=== PATIENT | female | born 1950 | race American Indian/Alaskan Native ===

== ENCOUNTER 2017-04-30 16:38 | Emergency (ER) | payer MEDICAID, OTHER ==
--- NOTE | 2017-04-30 16:58 | EDM.PDOC ---
ED HPI GENERAL MEDICAL PROBLEM - General Stated Complaint: SORE IN PRIVATE AREA, [id number] Time Seen by Provider: 04/30/17 16:40 Source of Information: Reports: Patient History Limitations: Reports: No Limitations - History of Present Illness INITIAL COMMENTS - FREE TEXT/NARRATIVE: This 66 yo female patient reports to the ED with her with left groin pain. The patient reports she started to have pain 4-5 days ago with worsening of her symptoms. The patient reports she was seen for her regular check-up yesterday at the [facility], told her provider about her symptoms, but was not treated. The patient reports she has been feeling pretty well other than the above complaint. Onset Date: 04/26/17 Duration: Constant, Getting Worse Location: Reports: Other (left groin) Quality: Reports: Ache, Burning Severity: Moderate Improves with: Reports: None Worsens with: Reports: None Associated Symptoms: Reports: No Other Symptoms Left Groin Pain Score (Numeric/FACES): 6 - Related Data Allergies Allergy/AdvReac Type Severity Reaction Status Date / Time ramipril [From Altace] Allergy Difficulty Verified 05/02/16 16:53 Swallowing Home Meds: Home Meds Aspirin [Tawanna Chewable] 81 mg PO DAILY 02/21/14 [History] Losartan [Cozaar] 50 mg PO DAILY 02/21/14 [History] glipiZIDE/Metformin HCl [Glipizide-Metformin 5-500 mg] 1 each PO BID 02/21/14 [ History] Insulin Detemir [Levemir] 35 units SQ BEDTIME 10/15/14 [History] Clotrimazole [Clotrimazole 1%] 1 applic TOP BID 03/07/16 [History] Trospium Chloride 1 tab PO BID 03/07/16 [History] atorvaSTATin Calcium [Atorvastatin Calcium] 1 tab PO DAILY 03/07/16 [History] Past Medical History HEENT History: Reports: Impaired Vision Cardiovascular History: Reports: High Cholesterol, Hypertension Respiratory History: Reports: Asthma Genitourinary History: Reports: Other (See Below) Other Genitourinary History: stress incontinence Endocrine/Metabolic History: Reports: Diabetes, Type II - Past Surgical History HEENT Surgical History: Reports: Cataract Surgery Female Surgical History: Reports: Other (See Below) Social & Family History - Family History Family Medical History: Noncontributory : Reports: Dialysis Endocrine/Metabolic: Reports: Diabetes, type II Oncologic: Reports: Breast - Tobacco Use Smoking Status *Q: Current Every Day Smoker Years of Tobacco use: 46 Packs/Tins Daily: 0.2 Second Hand Smoke Exposure: No - Caffeine Use Caffeine Use: Reports: Coffee - Alcohol Use Days Per Week of Alcohol Use: 0 - Recreational Drug Use Recreational Drug Use: No - Living Situation & Occupation Living situation: Reports: , with Family Occupation: Retired ED ROS GENERAL - Review of Systems Review Of Systems: ROS reveals no pertinent complaints other than HPI. ED EXAM, GENERAL - Physical Exam Exam: See Below Exam Limited By: No Limitations General Appearance: Alert, WD/WN, Moderate Distress Eye Exam: Bilateral Eye: EOMI, Normal Inspection, PERRL Ears: Normal External Exam, Normal Canal, Hearing Grossly Normal, Normal TMs Nose: Normal Inspection, Normal Mucosa, No Blood Throat/Mouth: Normal Inspection, Normal Lips, Normal Teeth, Normal Gums, Normal Oropharynx, Normal Voice, No Airway Compromise Head: Atraumatic, Normocephalic Neck: Normal Inspection, Supple, Non-Tender, Full Range of Motion Respiratory/Chest: No Respiratory Distress, Lungs Clear, Normal Breath Sounds, No Accessory Muscle Use, Chest Non-Tender Cardiovascular: Normal Peripheral Pulses, Regular Rate, Rhythm, No Edema, No Gallop, No JVD, No Murmur, No Rub GI/Abdominal: Normal Bowel Sounds, Soft, Non-Tender, No Organomegaly, No Distention, No Abnormal Bruit, No Mass (Female) Exam: Deferred Rectal (Female) Exam: Deferred Back Exam: Normal Inspection, Full Range of Motion, NT Extremities: Normal Inspection, Normal Range of Motion, Non-Tender, Normal Capillary Refill, No Pedal Edema Neurological: Alert, Oriented, CN II-XII Intact, Normal Cognition, Normal Gait, Normal Reflexes, No Motor/Sensory Deficits Psychiatric: Normal Affect, Normal Mood Skin Exam: Erythema (left groin with whitish discharge) Course - Vital Signs Last Recorded V/S: Last Vital Signs Temp 36.6 C 04/30/17 16:57 Pulse 89 04/30/17 16:57 Resp 16 04/30/17 16:57 BP 156/60 H 04/30/17 16:57 Pulse Ox 95 04/30/17 16:57 - Orders/Labs/Meds Labs: Laboratory Tests 04/30/17 04/30/17 04/30/17 Range/Units 17:00 17:00 17:00 WBC 17.7 H (5.0-10.0) 10^3/uL RBC 5.10 (4.2-5.4) 10^6/uL Hgb 14.6 (12.0-16.0) g/dL Hct 44.3 (37.0-47.0) % MCV 86.9 (80-100) fL MCH 28.6 (27.0-34.0) pg MCHC 33.0 (33.0-35.0) g/dL Plt Count 389 (150-450) 10^3/uL Neut % (Auto) 67.9 (42.2-75.2) % Lymph % (Auto) 26.5 (20.5-50.1) % [place] % (Auto) 4.6 (2-8) % Eos % (Auto) 0.7 L (1.0-3.0) % Baso % (Auto) 0.3 (0.0-1.0) % Sodium 138 (135-145) mmol/L Potassium 4.2 (3.6-5.0) mmol/L Chloride 99 L (101-111) mmol/L Carbon Dioxide 27.0 (21.0-31.0) mmol/L Anion Gap 16.2 BUN 8 (7-18) mg/dL Creatinine 0.6 (0.6-1.3) mg/dL Est Cr Clr Drug Dosing 73.29 mL/min Estimated GFR (MDRD) > 60 BUN/Creatinine Ratio 13.33 Glucose 234 H (74-105) mg/dL Calcium 9.5 (8.4-10.2) mg/dl Total Bilirubin 0.5 (0.2-1.0) mg/dL AST 16 (10-42) IU/L ALT 17 (10-60) IU/L Alkaline Phosphatase 98 (42-121) IU/L Total Protein 7.8 (6.7-8.2) g/dl Albumin 4.0 (3.2-5.5) g/dl Globulin 3.8 Albumin/Globulin Ratio 1.05 Urine Color Yellow (YELLOW) Urine Appearance Clear (CLEAR) Urine pH 6.0 (5.0-9.0) Ur Specific [place] 1.015 (1.005-1.030) Urine Protein Negative (NEGATIVE) Urine Glucose (UA) 100 H (NEGATIVE) Urine Ketones Negative (NEGATIVE) Urine Occult Blood Negative (NEGATIVE) Urine Nitrite Negative (NEGATIVE) Urine Bilirubin Negative (NEGATIVE) Urine Urobilinogen 0.2 (0.2-1.0) mg/dL Ur Leukocyte Esterase Negative (NEGATIVE) Urine RBC 0-5 /HPF Urine WBC 0-5 (0-5/HPF) /HPF Ur Epithelial Cells Moderate H /HPF Urine Bacteria Occasional (0-FEW/HPF) /HPF Departure - Departure Time of Disposition: 17:33 Disposition: Home, Self-Care 01 Condition: Fair Clinical Impression: Cutaneous candidiasis Cellulitis Qualifiers: Site of cellulitis: extremity Site of cellulitis of extremity: lower extremity Laterality: left Qualified Code(s): L03.116 - Cellulitis of left lower limb - Discharge Information Instructions: Cellulitis, Adult, [id number] Care Plan Goals: The patient was advised of the examination and lab results during the visit. The patient was given a script for Nystatin Ointment ([id number] units/gram) #15 gram tube to apply to the affected area 3 times per day for 10 days and Bactrim DS to take 1 by mouth 2 times per day for 10 days. If the patient has any additional symptoms or concerns, the patient should either follow-up with her primary care facility or return to the emergency department.
[2017-04-30 17:00] VITALS: BP 156/60
[2017-04-30 17:25] LABS: CHLORIDE,CL 99 mmol/L (101-111); SODIUM,NA 138 mmol/L (135-145)
== END 2017-04-30 17:56 | disposition home or self-care (01) ==
LOC: DL.ED 16:38
DX: L03.116 Cellulitis of left lower limb (principal); B37.2 Candidiasis of skin and nail; Z79.82 Long term (current) use of aspirin; E78.00 Pure hypercholesterolemia, unspecified; I10 Essential (primary) hypertension; E11.9 Type 2 diabetes mellitus without complications; F17.210 Nicotine dependence, cigarettes, uncomplicated; Z88.8 Allergy status to other drugs, medicaments and biological substances
CPT/HCPCS: 36415; 80053; 81001; 85025; 99283

== ENCOUNTER 2017-07-12 10:15 | Emergency (ER) | payer MEDICARE, MEDICAID ==
[2017-07-12 10:26] VITALS: BP 160/64
[2017-07-12] MEDS ORDERED: Albuterol/Ipratropium 3.0-0.5 MG/3 ML Neb Soln NEB ONE (10:42)
--- NOTE | 2017-07-12 10:57 | CR ---
Clinical history: 67-year-old female with cough and dyspnea. Interpretation: Chronic mild shaggy accentuation of the bronchovascular markings with subtle peribron chial "cuffing" and generalized air trapping that was evident on 22 February 2004 exam i.e. unchanged. Multilevel disc disease and hypertrophic arthritic changes of the spine. Calcification arch of the ao rta. Normal cardiac silhouette without cephalization of flow, new signs of alveolar edema or dependent eff usion. No new lung mass lesion, hilar lymphadenopathy or focal lobar pneumonia. No atelectasis/collapse. No pneumothorax. CONCLUSION: Reactive airway disease. No new signs of heart failure or lobar pneumonia when compared t o February 2014 film.
[2017-07-12 11:20] LABS: CHLORIDE,CL 101 mmol/L (101-111); SODIUM,NA 138 mmol/L (135-145)
--- NOTE | 2017-07-12 11:36 | EDM.PDOC ---
Scribed by Destiny Aldrich 07/12/17 1136 for Jairon Velasquez MD ED HPI GENERAL MEDICAL PROBLEM - General Chief Complaint: Chest Pain Stated Complaint: LEFT SIDE OF BREAST, PAIN Time Seen by Provider: 07/12/17 10:35 Source of Information: Reports: Patient, RN, RN Notes Reviewed History Limitations: Reports: No Limitations - History of Present Illness INITIAL COMMENTS - FREE TEXT/NARRATIVE: Patient complains of sick over a week with cough, chills, headache and left chest wall pains. Was seen in clinic and treated with Levaquin x5 days and has one day left on Medrol Dose Pack, but the medicine didn't help. At the clinic she states no blood tests or x-rays were taken. Admits to cough with white sputum that has some blood tinge today. Denies shortness of breath, edema or fever. Location: Reports: Head, Chest Quality: Reports: Ache Severity: Moderate Improves with: Reports: None Worsens with: Reports: None Associated Symptoms: Reports: No Other Symptoms Left Chest Pain Score (Numeric/FACES): 10 - Related Data Allergies Allergy/AdvReac Type Severity Reaction Status Date / Time ramipril [From Altace] Allergy Difficulty Verified 05/02/16 16:53 Swallowing Home Meds: Home Meds Aspirin [Tawanna Chewable] 81 mg PO DAILY 02/21/14 [History] Losartan [Cozaar] 50 mg PO DAILY 02/21/14 [History] glipiZIDE/Metformin HCl [Glipizide-Metformin 5-500 mg] 1 each PO BID 02/21/14 [ History] Insulin Detemir [Levemir] 44 units SQ BEDTIME 10/15/14 [History] Clotrimazole [Clotrimazole 1%] 1 applic TOP BID PRN 03/07/16 [History] atorvaSTATin Calcium [Atorvastatin Calcium] 1 tab PO BEDTIME 03/07/16 [History] Albuterol [IJD: Ventolin HFA] 2 puff INH ASDIRECTED PRN 07/12/17 [History] Insulin Aspart [Novolog Flexpen] 12 units SQ ASDIRECTED 07/12/17 [History] Past Medical History HEENT History: Reports: Impaired Vision Cardiovascular History: Reports: High Cholesterol, Hypertension Respiratory History: Reports: Asthma Genitourinary History: Reports: Other (See Below) Other Genitourinary History: stress incontinence Endocrine/Metabolic History: Reports: Diabetes, Type II - Past Surgical History HEENT Surgical History: Reports: Cataract Surgery Female Surgical History: Reports: Other (See Below) Social & Family History - Family History Family Medical History: Noncontributory : Reports: Dialysis Endocrine/Metabolic: Reports: Diabetes, type II Oncologic: Reports: Breast - Tobacco Use Smoking Status *Q: Current Every Day Smoker Years of Tobacco use: 46 Packs/Tins Daily: 0.2 Second Hand Smoke Exposure: No - Caffeine Use Caffeine Use: Reports: Coffee - Alcohol Use Days Per Week of Alcohol Use: 0 - Recreational Drug Use Recreational Drug Use: No - Living Situation & Occupation Living situation: Reports: , with Family Occupation: Retired ED ROS GENERAL - Review of Systems Review Of Systems: ROS reveals no pertinent complaints other than HPI. ED EXAM, GENERAL - Physical Exam Exam: See Below Exam Limited By: No Limitations General Appearance: Obese, Other (chronically ill appearing. ) Eye Exam: Bilateral Eye: Normal Inspection Ears: Normal External Exam, Normal Canal, Hearing Grossly Normal, Normal TMs Nose: Other (inflamed nasal mucosa. No visible drainage. ) Throat/Mouth: Normal Inspection, Normal Lips, Normal Teeth, Normal Gums, Normal Oropharynx, Normal Voice, No Airway Compromise Head: Atraumatic, Normocephalic Neck: Full Range of Motion, Other (no nuchal rigidity.) Respiratory/Chest: Wheezing (scattered bilaterally. ), Other (tender to palpation at left lateral mid lower chest wall.) Cardiovascular: Normal Peripheral Pulses, Regular Rate, Rhythm, No Edema, No Gallop, No JVD, No Murmur, No Rub GI/Abdominal: Other (benign obese abdomen) (Female) Exam: Deferred Rectal (Female) Exam: Deferred Back Exam: Normal Inspection, Full Range of Motion, NT Extremities: Normal Inspection, Normal Range of Motion, Non-Tender, Normal Capillary Refill, No Pedal Edema Neurological: Alert, Oriented, CN II-XII Intact, Normal Cognition, Normal Gait, Normal Reflexes, No Motor/Sensory Deficits Psychiatric: Normal Affect, Normal Mood Skin Exam: Warm, Dry, Intact, Normal Color, No Rash Course - Vital Signs Last Recorded V/S: Last Vital Signs Temp 36.7 C 07/12/17 10:24 Pulse 74 07/12/17 11:03 Resp 22 H 07/12/17 10:24 BP 160/64 H 07/12/17 10:24 Pulse Ox 96 07/12/17 10:24 - Orders/Labs/Meds Orders: Active Orders 24 hr Category Date Time Status RT Aerosol Therapy [RC] ASDIRECTED Care 07/12/17 10:42 Active CULTURE URINE [RM] Stat Lab 07/12/17 10:56 Received Labs: Laboratory Tests 07/12/17 07/12/17 07/12/17 Range/Units 10:55 10:55 10:56 WBC 14.9 H (5.0-10.0) 10^3/uL RBC 5.18 (4.2-5.4) 10^6/uL Hgb 14.8 (12.0-16.0) g/dL Hct 44.9 (37.0-47.0) % MCV 86.7 (80-100) fL MCH 28.6 (27.0-34.0) pg MCHC 33.0 (33.0-35.0) g/dL Plt Count 395 (150-450) 10^3/uL Neut % (Auto) 63.9 (42.2-75.2) % Lymph % (Auto) 30.3 (20.5-50.1) % [place] % (Auto) 5.2 (2-8) % Eos % (Auto) 0.3 L (1.0-3.0) % Baso % (Auto) 0.3 (0.0-1.0) % Sodium 138 (135-145) mmol/L Potassium 4.1 (3.6-5.0) mmol/L Chloride 101 (101-111) mmol/L Carbon Dioxide 27.0 (21.0-31.0) mmol/L Anion Gap 14.1 BUN 13 (7-18) mg/dL Creatinine 0.6 (0.6-1.3) mg/dL Est Cr Clr Drug Dosing 93.04 mL/min Estimated GFR (MDRD) > 60 BUN/Creatinine Ratio 21.66 Glucose 105 (74-105) mg/dL Calcium 9.4 (8.4-10.2) mg/dl Total Bilirubin 0.2 (0.2-1.0) mg/dL AST 15 (10-42) IU/L ALT 17 (10-60) IU/L Alkaline Phosphatase 96 (42-121) IU/L Total Protein 7.5 (6.7-8.2) g/dl Albumin 3.7 (3.2-5.5) g/dl Globulin 3.8 Albumin/Globulin Ratio 0.97 Urine Color Yellow (YELLOW) Urine Appearance Slightly cloudy (CLEAR) Urine pH 6.5 (5.0-9.0) Ur Specific [place] 1.015 (1.005-1.030) Urine Protein 30 H (NEGATIVE) Urine Glucose (UA) Negative (NEGATIVE) Urine Ketones Negative (NEGATIVE) Urine Occult Blood Negative (NEGATIVE) Urine Nitrite Negative (NEGATIVE) Urine Bilirubin Negative (NEGATIVE) Urine Urobilinogen 0.2 (0.2-1.0) mg/dL Ur Leukocyte Esterase Trace H (NEGATIVE) Urine RBC 0-5 /HPF Urine WBC 5-10 H (0-5/HPF) /HPF Ur Epithelial Cells Few /HPF Amorphous Sediment Few (0/HPF) /HPF Urine Bacteria Moderate H (0-FEW/HPF) /HPF Meds: Medications Discontinued Medications Generic Name Dose Route Start Last Admin Trade Name Freq PRN Reason Stop Dose Admin Albuterol/Ipratropium 3 ml 07/12/17 10:42 07/12/17 11:02 Duoneb 3.0-0.5 Mg/3 Ml NEB 07/12/17 10:43 3 ml ONETIME ONE Administration - Radiology Interpretation Free Text/Narrative:: Chest x-ray: Reactive airway disease. See rad report. Departure - Departure Time of Disposition: 11:26 Disposition: Home, Self-Care 01 Condition: Fair Clinical Impression: Pleurisy without effusion UTI (urinary tract infection) Qualifiers: Urinary tract infection type: site unspecified Hematuria presence: without hematuria Qualified Code(s): N39.0 - Urinary tract infection, site not specified - Discharge Information Instructions: Urinary Tract Infection, Adult, [id number], Pleurisy, Easy-to- Read Referrals: Lorne Moreira MD [Primary Care Provider] - Forms: ED Department Discharge Additional Instructions: RX: Tylenol#3. RX: Macrobid 100mg. Use your Albuterol inhaler every 4-6 hours while awake until improved. Follow up in clinicin3-4 days for recheck. - My Orders Last 24 Hours: My Active Orders 07/12/17 10:42 RT Aerosol Therapy [RC] ASDIRECTED 07/12/17 10:56 CULTURE URINE [RM] Stat - Assessment/Plan Last 24 Hours: My Active Orders 07/12/17 10:42 RT Aerosol Therapy [RC] ASDIRECTED 07/12/17 10:56 CULTURE URINE [RM] Stat I have read and agree with the documentation that has been completed regarding this visit. By signing this record, I attest that the documentation was completed in my physical presence and is an accurate record of the encounter.
== END 2017-07-12 11:40 | disposition home or self-care (01) ==
LOC: DL.ED 10:15
DX: R09.1 Pleurisy (principal); N39.0 Urinary tract infection, site not specified; I10 Essential (primary) hypertension; E11.9 Type 2 diabetes mellitus without complications; F17.210 Nicotine dependence, cigarettes, uncomplicated; Z79.82 Long term (current) use of aspirin; Z79.4 Long term (current) use of insulin; Z79.899 Other long term (current) drug therapy
CPT/HCPCS: 36415; 71020; 80053; 81001; 85025; 87086; 94640; 99284; 99285

== ENCOUNTER 2018-05-02 13:49 | Emergency (ER) | payer MEDICARE, MEDICAID ==
[2018-05-02 14:08] VITALS: BP 157/56
[2018-05-02] MEDS ORDERED: Sodium Chloride 0.9% 10 ML Syringe FLUSH PRN (15:22)
[2018-05-02 16:05] LABS: ANION GAP 14.2; CHLORIDE,CL 101 mmol/L (101-111); SODIUM,NA 135 mmol/L (135-145)
[2018-05-02] MEDS ORDERED: Iopamidol 612 MG/ML 100 ML Bottle IVPUSH ONE (16:12)
[2018-05-02] MEDS ORDERED: Clindamycin HCl 150 MG Cap PO ONE (18:01)
--- NOTE | 2018-05-02 18:53 | EDM.PDOC ---
Scribed by Destiny Aldrich 05/02/18 [id number] for Shayna Dee NP ED HPI GENERAL MEDICAL PROBLEM - General Chief Complaint: Genitourinary Problem Stated Complaint: PERSONAL [id number] Time Seen by Provider: 05/02/18 14:57 Source of Information: Reports: Patient, RN, RN Notes Reviewed History Limitations: Reports: No Limitations - History of Present Illness INITIAL COMMENTS - FREE TEXT/NARRATIVE: Patient presents to ER with complaint of abdominal pain. States she has had a hernia-but it has recently gotten larger and painful. She has had frequency, urgency, burning with urination and nausea. No fever, chills, vomiting or diarrhea. Last BM today which was normal for her. Onset: Gradual Duration: Getting Worse Location: Reports: Abdomen Quality: Reports: Ache Severity: Moderate Improves with: Reports: None Worsens with: Reports: None Associated Symptoms: Reports: No Other Symptoms - Related Data Allergies Allergy/AdvReac Type Severity Reaction Status Date / Time ramipril [From Altace] Allergy Difficulty Verified 05/02/16 16:53 Swallowing Home Meds: Home Meds Aspirin [Tawanna Chewable] 81 mg PO DAILY 02/21/14 [History] Losartan [Cozaar] 50 mg PO DAILY 02/21/14 [History] glipiZIDE/Metformin HCl [Glipizide-Metformin 5-500 mg] 1 each PO BID 02/21/14 [ History] Insulin Detemir [Levemir] 45 units SQ BEDTIME 10/15/14 [History] Clotrimazole [Clotrimazole 1%] 1 applic TOP BID PRN 03/07/16 [History] atorvaSTATin Calcium [Atorvastatin Calcium] 1 tab PO BEDTIME 03/07/16 [History] Albuterol [IJD: Ventolin HFA] 2 puff INH ASDIRECTED PRN 07/12/17 [History] Insulin Aspart [Novolog Flexpen] 15 units SQ TID 07/12/17 [History] Past Medical History HEENT History: Reports: Impaired Vision Cardiovascular History: Reports: High Cholesterol, Hypertension Respiratory History: Reports: Asthma Genitourinary History: Reports: Other (See Below) Other Genitourinary History: stress incontinence Endocrine/Metabolic History: Reports: Diabetes, Type II - Past Surgical History HEENT Surgical History: Reports: Cataract Surgery GI Surgical History: Reports: Cholecystectomy, Colonoscopy Female Surgical History: Reports: Other (See Below) Musculoskeletal Surgical History: Reports: Shoulder Surgery Social & Family History - Family History Family Medical History: Noncontributory : Reports: Dialysis Endocrine/Metabolic: Reports: Diabetes, type II Oncologic: Reports: Breast - Tobacco Use Smoking Status *Q: Current Every Day Smoker Years of Tobacco use: 40 Packs/Tins Daily: 0.1 - Caffeine Use Caffeine Use: Reports: Coffee, Soda, Tea - Recreational Drug Use Recreational Drug Use: No - Living Situation & Occupation Living situation: Reports: , with Family Occupation: Retired ED ROS GENERAL - Review of Systems Review Of Systems: ROS reveals no pertinent complaints other than HPI. ED EXAM, GI/ABD - Physical Exam Exam: See Below Exam Limited By: No Limitations General Appearance: Alert, WD/WN, No Apparent Distress Eyes: Bilateral: Normal Appearance Ears: Normal External Exam, Normal Canal, Hearing Grossly Normal, Normal TMs Nose: Normal Inspection, Normal Mucosa, No Blood Throat/Mouth: Normal Inspection, Normal Lips, Normal Teeth, Normal Gums, Normal Oropharynx, Normal Voice, No Airway Compromise Head: Atraumatic, Normocephalic Neck: Normal Inspection, Supple, Non-Tender, Full Range of Motion Respiratory/Chest: Rhonchi (bilateral throughout) Cardiovascular: Normal Peripheral Pulses, Regular Rate, Rhythm, No Edema, No Gallop, No JVD, No Murmur, No Rub GI/Abdominal Exam: Other (periumbilical hernia) (Female) Exam: Deferred Rectal (Female) Exam: Deferred Back Exam: Normal Inspection, Full Range of Motion, NT Extremities: Other (tender right gunn, normal exam) Neurological: Alert, Oriented, CN II-XII Intact, Normal Cognition, Normal Gait, Normal Reflexes, No Motor/Sensory Deficits Psychiatric: Normal Affect, Normal Mood Skin Exam: Warm, Dry, Intact, Normal Color, No Rash Lymphatic: No Adenopathy Course - Vital Signs Last Recorded V/S: Last Vital Signs Temp 98 F 05/02/18 14:07 Pulse 78 05/02/18 14:07 Resp 16 05/02/18 14:07 BP 157/56 H 05/02/18 14:07 Pulse Ox 94 L 05/02/18 14:07 - Orders/Labs/Meds Orders: Active Orders 24 hr Category Date Time Status Peripheral IV Care [RC] . DIRECTED Care 05/02/18 15:22 Active Sodium Chloride 0.9% [Saline Flush] Med 05/02/18 15:22 Active 10 ml FLUSH ASDIRECTED PRN Peripheral IV Insertion Adult [OM.PC] Stat Oth 05/02/18 15:22 Ordered Medication Orders Sodium Chloride (Saline Flush) 10 ml FLUSH ASDIRECTED PRN PRN Reason: Keep Vein Open Last Admin: 05/02/18 15:44 Dose: 10 ml Labs: Laboratory Tests 05/02/18 05/02/18 05/02/18 Range/Units 14:44 15:39 15:39 WBC 14.5 H (5.0-10.0) 10^3/uL RBC 4.91 (4.2-5.4) 10^6/uL Hgb 13.6 (12.0-16.0) g/dL Hct 42.7 (37.0-47.0) % MCV 87.0 (80-100) fL MCH 27.7 (27.0-34.0) pg MCHC 31.9 L (33.0-35.0) g/dL Plt Count 385 (150-450) 10^3/uL Neut % (Auto) 59.6 (42.2-75.2) % Lymph % (Auto) 34.4 (20.5-50.1) % [place] % (Auto) 4.6 (2-8) % Eos % (Auto) 1.0 (1.0-3.0) % Baso % (Auto) 0.4 (0.0-1.0) % Sodium 135 (135-145) mmol/L Potassium 4.2 (3.6-5.0) mmol/L Chloride 101 (101-111) mmol/L Carbon Dioxide 24.0 (21.0-31.0) mmol/L Anion Gap 14.2 BUN 12 (7-18) mg/dL Creatinine 0.5 L (0.6-1.3) mg/dL Est Cr Clr Drug Dosing 87.54 mL/min Estimated GFR (MDRD) > 60 BUN/Creatinine Ratio 24.00 Glucose 177 H (74-105) mg/dL Calcium 9.3 (8.4-10.2) mg/dl Total Bilirubin 0.2 (0.2-1.0) mg/dL AST 16 (10-42) IU/L ALT 19 (10-60) IU/L Alkaline Phosphatase 107 (42-121) IU/L Total Protein 7.5 (6.7-8.2) g/dl Albumin 3.8 (3.2-5.5) g/dl Globulin 3.7 Albumin/Globulin Ratio 1.03 Urine Color Yellow (YELLOW) Urine Appearance Clear (CLEAR) Urine pH 6.0 (5.0-9.0) Ur Specific [place] 1.010 (1.005-1.030) Urine Protein Negative (NEGATIVE) Urine Glucose (UA) Negative (NEGATIVE) Urine Ketones Negative (NEGATIVE) Urine Occult Blood Negative (NEGATIVE) Urine Nitrite Negative (NEGATIVE) Urine Bilirubin Negative (NEGATIVE) Urine Urobilinogen 0.2 (0.2-1.0) mg/dL Ur Leukocyte Esterase Negative (NEGATIVE) Urine RBC 0-5 /HPF Urine WBC 0-5 (0-5/HPF) /HPF Ur Epithelial Cells Few /HPF Amorphous Sediment Rare (0/HPF) /HPF Urine Bacteria Rare (0-FEW/HPF) /HPF Meds: Medications Generic Name Dose Route Start Last Admin Trade Name Freq PRN Reason Stop Dose Admin Sodium Chloride 10 ml 05/02/18 15:22 05/02/18 15:44 Saline Flush FLUSH 10 ml ASDIRECTED PRN Administration Keep Vein Open Discontinued Medications Generic Name Dose Route Start Last Admin Trade Name Freq PRN Reason Stop Dose Admin Clindamycin HCl 300 mg 05/02/18 18:01 Cleocin PO 05/02/18 18:02 ONETIME ONE Iopamidol 100 ml 05/02/18 16:12 05/02/18 16:32 Isovue-300 (61%) IVPUSH 05/02/18 16:13 100 ml ONETIME ONE Administration - Radiology Interpretation Free Text/Narrative:: Abdomen/Pelvis CT: IMPRESSION: 1. There is a diffuse decrease in hepatic parenchymal density, consistent with fatty infiltration. 2. There has been a cholecystectomy. 3. Calcified uterine fibroids. Thank you for allowing us to participate in the care of your patient. 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 Recommended pelvic exam. - My Orders Last 24 Hours: My Active Orders 05/02/18 15:22 Peripheral IV Care [RC] . DIRECTED Sodium Chloride 0.9% [Saline Flush] 10 ml FLUSH ASDIRECTED PRN Peripheral IV Insertion Adult [OM.PC] Stat - Assessment/Plan Last 24 Hours: My Active Orders 05/02/18 15:22 Peripheral IV Care [RC] . DIRECTED Sodium Chloride 0.9% [Saline Flush] 10 ml FLUSH ASDIRECTED PRN Peripheral IV Insertion Adult [OM.PC] Stat I have read and agree with the documentation that has been completed regarding this visit. By signing this record, I attest that the documentation was completed in my physical presence and is an accurate record of the encounter.
== END 2018-05-02 18:11 | disposition home or self-care (01) ==
LOC: DL.ED 13:49
DX: R10.33 Periumbilical pain (principal); E11.69 Type 2 diabetes mellitus with other specified complication; F17.210 Nicotine dependence, cigarettes, uncomplicated; Z88.8 Allergy status to other drugs, medicaments and biological substances; Z79.82 Long term (current) use of aspirin; Z79.899 Other long term (current) drug therapy
CPT/HCPCS: 36415; 74177; 80053; 81001; 85025; 99284; A9270; J7050; Q9967; 99283

== ENCOUNTER 2018-10-27 15:08 | Emergency (ER) | payer MEDICARE, MEDICAID ==
[2018-10-27 15:22] VITALS: BP 132/64
[2018-10-27] MEDS ORDERED: Albuterol/Ipratropium 3.0-0.5 MG/3 ML Neb Soln NEB ONE (16:01)
[2018-10-27 16:07] LABS: CHLORIDE,CL 99 mmol/L (101-111); SODIUM,NA 134 mmol/L (135-145)
--- NOTE | 2018-10-27 16:21 | CR ---
Clinical history: 68-year-old female complaining of shortness of breath. Interpretation: *No acute new cardiopulmonary abnormality since 12 July 2017 comparison film. Chronic mild shaggy bronchitic pattern. Atheromatous calcifications arch of the aorta. Normal cardiac silhouette without new cephalization of vascular flow, alveolar edema or dependent pleural fluid accumulation. No new lung mass, hilar lymphadenopathy or focal lobar pneumonia. No atelectasis/collapse. 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 No pneumothorax or free subdiaphragmatic air.
--- NOTE | 2018-10-27 16:50 | EDM.PDOC ---
Scribed by Destiny Aldrich 10/27/18 [id number] for Kamari Yun PA ED HPI GENERAL MEDICAL PROBLEM - General Chief Complaint: Respiratory Problem Stated Complaint: HARD TIME BREATHING Time Seen by Provider: 10/27/18 15:30 Source of Information: Reports: Patient, RN, RN Notes Reviewed History Limitations: Reports: No Limitations - History of Present Illness INITIAL COMMENTS - FREE TEXT/NARRATIVE: Patient is a 68 year-old female who reports with increased shortness of breath and cough. The patient reports she has been coughing x3 months. The patients she has noticed black film coming out of their heater x3 years. The patient reports she has attempted to call housing, but all they do is come and look at the heater. The patient reports she told her primary care physician about this, but was advised she would be sent to someone to check out her lungs. The patient reports she has not used her inhaler or nebulizer in 1 week. Onset: Gradual Duration: Constant Location: Reports: Chest Quality: Reports: Other (coughing) Severity: Moderate Improves with: Reports: None Worsens with: Reports: None Associated Symptoms: Reports: No Other Symptoms - Related Data Allergies Allergy/AdvReac Type Severity Reaction Status Date / Time ramipril [From Altace] Allergy Swollen Verified 10/27/18 15:13 Tongue Home Meds: Home Meds Aspirin [Tawanna Chewable] 81 mg PO DAILY 02/21/14 [History] Losartan [Cozaar] 50 mg PO DAILY 02/21/14 [History] glipiZIDE/Metformin HCl [Glipizide-Metformin 5-500 mg] 1 each PO BID 02/21/14 [ History] Insulin Detemir [Levemir] 48 units SQ BEDTIME 10/15/14 [History] Clotrimazole [Clotrimazole 1%] 1 applic TOP BID PRN 03/07/16 [History] atorvaSTATin Calcium [Atorvastatin Calcium] 40 mg PO BEDTIME 03/07/16 [History] Albuterol [IJD: Ventolin HFA] 2 puff INH ASDIRECTED PRN 07/12/17 [History] Insulin Aspart [Novolog Flexpen] 16 units SQ TID 07/12/17 [History] Past Medical History HEENT History: Reports: Impaired Vision Cardiovascular History: Reports: High Cholesterol, Hypertension Respiratory History: Reports: Asthma, SOB Genitourinary History: Reports: Other (See Below) Other Genitourinary History: stress incontinence Endocrine/Metabolic History: Reports: Diabetes, Type II - Infectious Disease History Infectious Disease History: Reports: Chicken Pox, Measles, Mumps - Past Surgical History HEENT Surgical History: Reports: Cataract Surgery GI Surgical History: Reports: Cholecystectomy, Colonoscopy Female Surgical History: Reports: Tubal Ligation Musculoskeletal Surgical History: Reports: Shoulder Surgery Social & Family History - Family History Family Medical History: Noncontributory : Reports: Dialysis Endocrine/Metabolic: Reports: Diabetes, type II Oncologic: Reports: Breast - Tobacco Use Smoking Status *Q: Current Every Day Smoker Years of Tobacco use: 54 Packs/Tins Daily: 0.1 - Caffeine Use Caffeine Use: Reports: Coffee, Soda - Recreational Drug Use Recreational Drug Use: No - Living Situation & Occupation Living situation: Reports: , with Family Occupation: Retired ED ROS GENERAL - Review of Systems Review Of Systems: ROS reveals no pertinent complaints other than HPI. ED EXAM, GENERAL - Physical Exam Exam: See Below Exam Limited By: No Limitations General Appearance: Alert, WD/WN, No Apparent Distress Eye Exam: Bilateral Eye: EOMI, Normal Inspection, PERRL Ears: Normal External Exam, Normal Canal, Hearing Grossly Normal, Normal TMs Nose: Normal Inspection, Normal Mucosa, No Blood Throat/Mouth: Normal Inspection, Normal Lips, Normal Teeth, Normal Gums, Normal Oropharynx, Normal Voice, No Airway Compromise Head: Atraumatic ( ) Neck: Normal Inspection, Supple, Non-Tender, Full Range of Motion Respiratory/Chest: Decreased Breath Sounds, Other (atelectatic sounds) Cardiovascular: Normal Peripheral Pulses, Regular Rate, Rhythm, No Edema, No Gallop, No JVD, No Murmur, No Rub GI/Abdominal: Normal Bowel Sounds, Soft, Non-Tender, No Organomegaly, No Distention, No Abnormal Bruit, No Mass (Female) Exam: Deferred Rectal (Female) Exam: Deferred Back Exam: Normal Inspection, Full Range of Motion, NT Extremities: Normal Inspection, Normal Range of Motion, Non-Tender, Normal Capillary Refill, No Pedal Edema Neurological: Alert, Oriented, CN II-XII Intact, Normal Cognition, Normal Gait, Normal Reflexes, No Motor/Sensory Deficits Psychiatric: Normal Affect, Normal Mood Skin Exam: Warm, Dry, Intact, Normal Color, No Rash Lymphatic: No Adenopathy Course - Vital Signs Last Recorded V/S: Last Vital Signs Temp 36.9 C 10/27/18 15:17 Pulse 81 10/27/18 16:17 Resp 20 10/27/18 15:17 BP 132/64 10/27/18 15:17 Pulse Ox 94 L 10/27/18 16:17 - Orders/Labs/Meds Orders: Active Orders 24 hr Category Date Time Status EKG Documentation Completion [RC] URGENT Care 10/27/18 15:29 Active RT Aerosol Therapy [RC] ASDIRECTED Care 10/27/18 16:01 Active CULTURE BLOOD [BC] Stat Lab 10/27/18 15:41 Received Labs: Laboratory Tests 10/27/18 10/27/18 10/27/18 Range/Units 15:41 15:41 15:41 WBC 14.7 H (5.0-10.0) 10^3/uL RBC 5.14 (4.2-5.4) 10^6/uL Hgb 14.5 (12.0-16.0) g/dL Hct 44.4 (37.0-47.0) % MCV 86.4 (80-100) fL MCH 28.2 (27.0-34.0) pg MCHC 32.7 L (33.0-35.0) g/dL Plt Count 403 (150-450) 10^3/uL Neut % (Auto) 61.4 (42.2-75.2) % Lymph % (Auto) 32.1 (20.5-50.1) % [place] % (Auto) 5.4 (2-8) % Eos % (Auto) 0.8 L (1.0-3.0) % Baso % (Auto) 0.3 (0.0-1.0) % Sodium 134 L (135-145) mmol/L Potassium 4.0 (3.6-5.0) mmol/L Chloride 99 L (101-111) mmol/L Carbon Dioxide 23.0 (21.0-31.0) mmol/L Anion Gap 16.0 BUN 7 (7-18) mg/dL Creatinine 0.6 (0.6-1.3) mg/dL Est Cr Clr Drug Dosing 78.57 mL/min Estimated GFR (MDRD) > 60 BUN/Creatinine Ratio 11.66 Glucose 137 H (74-105) mg/dL Lactic Acid 1.1 (0.5-2.2) mmol/L Calcium 9.1 (8.4-10.2) mg/dl Total Bilirubin 0.5 (0.2-1.0) mg/dL AST 17 (10-42) IU/L ALT 23 (10-60) IU/L Alkaline Phosphatase 95 (42-121) IU/L Troponin I < 0.02 (0.00-0.02) ng/ml B-Natriuretic Peptide 16 (0-100) pg/ml Total Protein 7.6 (6.7-8.2) g/dl Albumin 3.9 (3.2-5.5) g/dl Globulin 3.7 Albumin/Globulin Ratio 1.05 Meds: Medications Discontinued Medications Generic Name Dose Route Start Last Admin Trade Name Freq PRN Reason Stop Dose Admin Albuterol/Ipratropium 3 ml 10/27/18 16:01 10/27/18 16:17 Duoneb 3.0-0.5 Mg/3 Ml NEB 10/27/18 16:02 3 ml ONETIME ONE Administration Departure - Departure Time of Disposition: 16:46 Disposition: Home, Self-Care 01 Condition: Fair Clinical Impression: Bronchitis - Discharge Information *PRESCRIPTION DRUG MONITORING PROGRAM REVIEWED*: Not Applicable *COPY OF PRESCRIPTION DRUG MONITORING REPORT IN PATIENT LASHAY: Not Applicable Instructions: Upper Respiratory Infection, Adult, [id number] Forms: ED Department Discharge Care Plan Goals: The patient was advised of the examination, lab and x-ray results during the visit. The patient was given a nebulizer treatment while in the ED. The patient was discharged with a script for Azithromycin and Albuterol neb solution. The patient should follow-up with her primary care facility for continued evaluation and management. - My Orders Last 24 Hours: My Active Orders 10/27/18 15:29 EKG Documentation Completion [RC] URGENT 10/27/18 15:41 CULTURE BLOOD [BC] Stat 10/27/18 16:01 RT Aerosol Therapy [RC] ASDIRECTED - Assessment/Plan Last 24 Hours: My Active Orders 10/27/18 15:29 EKG Documentation Completion [RC] URGENT 10/27/18 15:41 CULTURE BLOOD [BC] Stat 10/27/18 16:01 RT Aerosol Therapy [RC] ASDIRECTED I have read and agree with the documentation that has been completed regarding this visit. By signing this record, I attest that the documentation was completed in my physical presence and is an accurate record of the encounter.
[2018-10-27] MEDS ORDERED: cefTRIAXone 1 GM, Lidocaine 1% 2.1 ML IM ONE ×2 (17:08)
== END 2018-10-27 17:20 | disposition home or self-care (01) ==
LOC: DL.ED 15:08
DX: J40 Bronchitis, not specified as acute or chronic (principal); F17.210 Nicotine dependence, cigarettes, uncomplicated; E11.9 Type 2 diabetes mellitus without complications; I10 Essential (primary) hypertension; E78.00 Pure hypercholesterolemia, unspecified; Z79.82 Long term (current) use of aspirin; Z79.4 Long term (current) use of insulin; Z79.899 Other long term (current) drug therapy; Z88.8 Allergy status to other drugs, medicaments and biological substances
CPT/HCPCS: 36415; 71046; 80053; 83605; 83880; 84484; 85025; 87040; 93005; 94640; 96372; 99285; J0696; J2001; J7620-GY

== ENCOUNTER 2019-01-17 19:42 | Emergency (ER) | payer MEDICARE, MEDICAID ==
[2019-01-17] MEDS ORDERED: Cyclobenzaprine 10 MG Tab PO ONE (19:43)
[2019-01-17 19:55] VITALS: PULSE 77
--- NOTE | 2019-01-17 20:17 | EDM.PDOC ---
ED HPI GENERAL MEDICAL PROBLEM - General Chief Complaint: Genitourinary Problem Stated Complaint: LOWER BACK PAIN Time Seen by Provider: 01/17/19 20:00 Source of Information: Reports: Patient History Limitations: Reports: No Limitations - History of Present Illness INITIAL COMMENTS - FREE TEXT/NARRATIVE: This 68 yo female patient reports to the ED with left flank pain that has been getting worse over the past 5 days. The patient also reports left sided neck stiffness. The patient has not taken any over the counter medications for temporary symptom relief and has not been seen by her primary care facility. 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 - Related Data Allergies Allergy/AdvReac Type Severity Reaction Status Date / Time ramipril [From Altace] Allergy Swollen Verified 01/17/19 19:48 Tongue Home Meds: Home Meds Aspirin [Tawanna Chewable] 81 mg PO DAILY 02/21/14 [History] Losartan [Cozaar] 50 mg PO DAILY 02/21/14 [History] glipiZIDE/Metformin HCl [Glipizide-Metformin 5-500 mg] 1 each PO BID 02/21/14 [ History] Insulin Detemir [Levemir] 48 units SQ BEDTIME 10/15/14 [History] Clotrimazole [Clotrimazole 1%] 1 applic TOP BID PRN 03/07/16 [History] atorvaSTATin Calcium [Atorvastatin Calcium] 40 mg PO BEDTIME 03/07/16 [History] Albuterol [IJD: Ventolin HFA] 2 puff INH ASDIRECTED PRN 07/12/17 [History] Insulin Aspart [Novolog Flexpen] 16 units SQ TID 07/12/17 [History] Past Medical History HEENT History: Reports: Impaired Vision Cardiovascular History: Reports: High Cholesterol, Hypertension Respiratory History: Reports: Asthma, SOB Genitourinary History: Reports: Other (See Below) Other Genitourinary History: stress incontinence Endocrine/Metabolic History: Reports: Diabetes, Type II - Infectious Disease History Infectious Disease History: Reports: Chicken Pox, Measles, Mumps - Past Surgical History HEENT Surgical History: Reports: Cataract Surgery GI Surgical History: Reports: Cholecystectomy, Colonoscopy Female Surgical History: Reports: Tubal Ligation Musculoskeletal Surgical History: Reports: Shoulder Surgery Social & Family History - Family History Family Medical History: Noncontributory : Reports: Dialysis Endocrine/Metabolic: Reports: Diabetes, type II Oncologic: Reports: Breast - Caffeine Use Caffeine Use: Reports: Coffee, Soda - Living Situation & Occupation Living situation: Reports: , with Family Occupation: Retired ED ROS GENERAL - Review of Systems Review Of Systems: ROS reveals no pertinent complaints other than HPI. ED EXAM, RENAL/ - Physical Exam Exam: See Below Exam Limited By: No Limitations General Appearance: Alert, WD/WN, Moderate Distress Eye Exam: Bilateral Eye: EOMI, Normal Inspection, PERRL Ears: Normal External Exam, Normal Canal, Hearing Grossly Normal, Normal TMs Nose: Normal Inspection, Normal Mucosa, No Blood Throat/Mouth: Normal Inspection, Normal Lips, Normal Teeth, Normal Gums, Normal Oropharynx, Normal Voice, No Airway Compromise Head: Atraumatic, Normocephalic Neck: Normal Inspection, Supple, Non-Tender, Full Range of Motion Respiratory/Chest: No Respiratory Distress, Lungs Clear, Normal Breath Sounds, No Accessory Muscle Use, Chest Non-Tender Cardiovascular: Normal Peripheral Pulses, Regular Rate, Rhythm, No Edema, No Gallop, No JVD, No Murmur, No Rub GI/Abdominal: Normal Bowel Sounds, Soft, Non-Tender, No Organomegaly, No Distention, No Abnormal Bruit, No Mass (Female) Exam: Deferred Rectal (Female) Exam: Deferred Back Exam: CVA Tenderness (L), Paraspinal Tenderness Extremities: Normal Inspection, Normal Range of Motion, Non-Tender, Normal Capillary Refill, No Pedal Edema Neurological: Alert, Oriented, CN II-XII Intact, Normal Cognition, Normal Gait, Normal Reflexes, No Motor/Sensory Deficits Psychiatric: Normal Affect, Normal Mood Skin Exam: Warm, Dry, Intact, Normal Color, No Rash Lymphatic: No Adenopathy Course - Vital Signs Last Recorded V/S: Last Vital Signs Temp 36.3 C 01/17/19 19:48 Pulse 77 01/17/19 19:48 Resp 16 01/17/19 19:48 BP Pulse Ox 95 01/17/19 19:48 - Orders/Labs/Meds Orders: Active Orders 24 hr Category Date Time Status Abdomen Pelvis wo Cont [CT] Urgent Exams 01/17/19 20:26 Taken CULTURE URINE [RM] Stat Lab 01/17/19 19:50 Received Sodium Chloride 0.9% [Normal Saline] 1,000 ml Med 01/17/19 20:21 Active IV .BOLUS Medication Orders Sodium Chloride (Normal Saline) 1,000 mls @ 500 mls/hr IV .BOLUS ONE Stop: 01/17/19 22:20 Last Admin: 01/17/19 20:25 Dose: 500 mls/hr Labs: Laboratory Tests 01/17/19 01/17/19 01/17/19 Range/Units 19:50 20:01 20:01 WBC 15.0 H (5.0-10.0) 10^3/uL RBC 5.16 (4.2-5.4) 10^6/uL Hgb 14.8 (12.0-16.0) g/dL Hct 44.7 (37.0-47.0) % MCV 86.6 (80-100) fL MCH 28.7 (27.0-34.0) pg MCHC 33.1 (33.0-35.0) g/dL Plt Count 402 (150-450) 10^3/uL Neut % (Auto) 50.9 (42.2-75.2) % Lymph % (Auto) 41.7 (20.5-50.1) % [place] % (Auto) 5.9 (2-8) % Eos % (Auto) 1.1 (1.0-3.0) % Baso % (Auto) 0.4 (0.0-1.0) % Add Manual Diff Yes Neutrophils % (Manual) 51 (42-75) % Lymphocytes % (Manual) 39 (20-50) % Monocytes % (Manual) 9 H (2-8) % Eosinophils % (Manual) 1 (1-3) % Nucleated RBCs /100WBC Sodium (135-145) mmol/L Potassium (3.6-5.0) mmol/L Chloride (101-111) mmol/L Carbon Dioxide (21.0-31.0) mmol/L Anion Gap BUN (7-18) mg/dL Creatinine (0.6-1.3) mg/dL Est Cr Clr Drug Dosing mL/min Estimated GFR (MDRD) BUN/Creatinine Ratio Glucose (74-105) mg/dL Lactic Acid 1.4 (0.5-2.2) mmol/L Calcium (8.4-10.2) mg/dl Total Bilirubin (0.2-1.0) mg/dL AST (10-42) IU/L ALT (10-60) IU/L Alkaline Phosphatase (42-121) IU/L Total Protein (6.7-8.2) g/dl Albumin (3.2-5.5) g/dl Globulin Albumin/Globulin Ratio Urine Color Yellow (YELLOW) Urine Appearance Clear (CLEAR) Urine pH 7.0 (5.0-9.0) Ur Specific [place] 1.015 (1.005-1.030) Urine Protein 30 H (NEGATIVE) Urine Glucose (UA) Negative (NEGATIVE) Urine Ketones Negative (NEGATIVE) Urine Occult Blood Trace-intact H (NEGATIVE) Urine Nitrite Negative (NEGATIVE) Urine Bilirubin Negative (NEGATIVE) Urine Urobilinogen 0.2 (0.2-1.0) mg/dL Ur Leukocyte Esterase Negative (NEGATIVE) Urine RBC 5-10 H /HPF Urine WBC 5-10 H (0-5/HPF) /HPF Ur Epithelial Cells Moderate H (NOT SEEN) /HPF Urine Bacteria Many H (0-FEW/HPF) /HPF Granular Casts Rare (NOT SEEN) /LPF 01/17/19 Range/Units 20:01 WBC (5.0-10.0) 10^3/uL RBC (4.2-5.4) 10^6/uL Hgb (12.0-16.0) g/dL Hct (37.0-47.0) % MCV (80-100) fL MCH (27.0-34.0) pg MCHC (33.0-35.0) g/dL Plt Count (150-450) 10^3/uL Neut % (Auto) (42.2-75.2) % Lymph % (Auto) (20.5-50.1) % [place] % (Auto) (2-8) % Eos % (Auto) (1.0-3.0) % Baso % (Auto) (0.0-1.0) % Add Manual Diff Neutrophils % (Manual) (42-75) % Lymphocytes % (Manual) (20-50) % Monocytes % (Manual) (2-8) % Eosinophils % (Manual) (1-3) % Nucleated RBCs /100WBC Sodium 133 L (135-145) mmol/L Potassium 4.3 (3.6-5.0) mmol/L Chloride 100 L (101-111) mmol/L Carbon Dioxide 22.0 (21.0-31.0) mmol/L Anion Gap 15.3 BUN 12 (7-18) mg/dL Creatinine 0.7 (0.6-1.3) mg/dL Est Cr Clr Drug Dosing 67.34 mL/min Estimated GFR (MDRD) > 60 BUN/Creatinine Ratio 17.14 Glucose 124 H (74-105) mg/dL Lactic Acid (0.5-2.2) mmol/L Calcium 9.0 (8.4-10.2) mg/dl Total Bilirubin 0.2 (0.2-1.0) mg/dL AST 16 (10-42) IU/L ALT 18 (10-60) IU/L Alkaline Phosphatase 99 (42-121) IU/L Total Protein 7.6 (6.7-8.2) g/dl Albumin 3.9 (3.2-5.5) g/dl Globulin 3.7 Albumin/Globulin Ratio 1.05 Urine Color (YELLOW) Urine Appearance (CLEAR) Urine pH (5.0-9.0) Ur Specific [place] (1.005-1.030) Urine Protein (NEGATIVE) Urine Glucose (UA) (NEGATIVE) Urine Ketones (NEGATIVE) Urine Occult Blood (NEGATIVE) Urine Nitrite (NEGATIVE) Urine Bilirubin (NEGATIVE) Urine Urobilinogen (0.2-1.0) mg/dL Ur Leukocyte Esterase (NEGATIVE) Urine RBC /HPF Urine WBC (0-5/HPF) /HPF Ur Epithelial Cells (NOT SEEN) /HPF Urine Bacteria (0-FEW/HPF) /HPF Granular Casts (NOT SEEN) /LPF Meds: Medications Generic Name Dose Route Start Last Admin Trade Name Freq PRN Reason Stop Dose Admin Sodium Chloride 1,000 mls @ 500 mls/hr 01/17/19 20:21 01/17/19 20:25 Normal Saline IV 01/17/19 22:20 500 mls/hr .BOLUS ONE Administration Discontinued Medications Generic Name Dose Route Start Last Admin Trade Name Freq PRN Reason Stop Dose Admin Ketorolac Tromethamine 30 mg 01/17/19 20:45 01/17/19 20:57 Toradol IVPUSH 01/17/19 20:46 30 mg ONETIME ONE Administration Nitrofurantoin Macrocrystals 100 mg 01/17/19 21:49 Macrobid PO 01/17/19 21:50 ONETIME ONE Departure - Departure Time of Disposition: 21:53 Disposition: Home, Self-Care 01 Condition: Fair Clinical Impression: UTI, Urinary tract infectious disease Low back strain Qualifiers: Encounter type: initial encounter Qualified Code(s): S39.012A - Strain of muscle, fascia and tendon of lower back, initial encounter - Discharge Information *PRESCRIPTION DRUG MONITORING PROGRAM REVIEWED*: Yes *COPY OF PRESCRIPTION DRUG MONITORING REPORT IN PATIENT LASHAY: Yes Instructions: Muscle Strain, [id number], Urinary Tract Infection, Adult, Easy -to-Read Forms: ED Department Discharge Care Plan Goals: The patient was advised of the examination, lab and CT results during the visit. The patient was given IV fluids, IV Toradol and an oral dose of Macrobid while in the ED. The patient was discharged with a dose of Flexeril (10 mg) to take at bedtime tonight. The patient was also discharged with scripts for Macrobid (100 mg) #14 to take 1 by mouth 2 times per day for 7 days, Toradol # 18 to take 1 by mouth every 6 hours and Flexeril (10 mg) #10 to take 1 by mouth at bedtime as needed. If the patient has any additional symptoms or concerns, the patient should either return to the emergency department or visit her primary care facility. - My Orders Last 24 Hours: My Active Orders 01/17/19 19:50 CULTURE URINE [RM] Stat 01/17/19 20:21 Sodium Chloride 0.9% [Normal Saline] 1,000 ml IV .BOLUS 01/17/19 20:26 Abdomen Pelvis wo Cont [CT] Urgent - Assessment/Plan Last 24 Hours: My Active Orders 01/17/19 19:50 CULTURE URINE [RM] Stat 01/17/19 20:21 Sodium Chloride 0.9% [Normal Saline] 1,000 ml IV .BOLUS 01/17/19 20:26 Abdomen Pelvis wo Cont [CT] Urgent
[2019-01-17] MEDS ORDERED: Sodium Chloride 0.9% 1,000 ML IV ONE (20:21)
[2019-01-17 20:30] LABS: ANION GAP 15.3; CHLORIDE,CL 100 mmol/L (101-111); SODIUM,NA 133 mmol/L (135-145)
[2019-01-17] MEDS ORDERED: Ketorolac 30 MG/ML SDV IVPUSH ONE (20:45)
[2019-01-17] MEDS ORDERED: Nitrofurantoin Monohydrate/Macrocrystalline 100 MG Cap PO ONE (21:49)
[2019-01-17] MEDS ORDERED: Cyclobenzaprine 10 MG Tab ONE (22:02)
== END 2019-01-17 22:10 | disposition home or self-care (01) ==
LOC: DL.ED 19:42
DX: S39.012A Strain of muscle, fascia and tendon of lower back, initial encounter (principal); N39.0 Urinary tract infection, site not specified; E78.00 Pure hypercholesterolemia, unspecified; I10 Essential (primary) hypertension; J45.909 Unspecified asthma, uncomplicated; E11.9 Type 2 diabetes mellitus without complications; Z79.4 Long term (current) use of insulin; Z88.8 Allergy status to other drugs, medicaments and biological substances; Z79.82 Long term (current) use of aspirin; Z79.899 Other long term (current) drug therapy; X58.XXXA Exposure to other specified factors, initial encounter
CPT/HCPCS: 36415; 74176; 80053; 81001; 83605; 85025; 87086; 96361; 96374; 99284; A9270; J1885; J7030; 87088; 87186; 99283

== ENCOUNTER 2019-04-07 13:58 | Emergency (ER) | payer MEDICARE, MEDICAID ==
[2019-04-07] MEDS ORDERED: Sodium Chloride 0.9% 10 ML Syringe FLUSH PRN (14:06)
--- NOTE | 2019-04-07 14:06 | EDM.PDOC ---
ED HPI GENERAL MEDICAL PROBLEM - General Chief Complaint: Chest Pain Stated Complaint: WALK OVER FROM CLINIC Time Seen by Provider: 04/07/19 14:06 Source of Information: Reports: Patient, Provider (Ching Baird NP), RN, RN Notes Reviewed History Limitations: Reports: No Limitations - History of Present Illness INITIAL COMMENTS - FREE TEXT/NARRATIVE: Patient to ER from [facility] with complaint of midsternal chest pain. This began at 09:30 and began suddenly. She has diabetes mellitus insulin dependent, hypertension and high cholesterol. She has had no shortness of breath , cough, burning sensation, vomiting, fever or chills. No nausea. Onset: Today, Sudden Duration: Getting Worse Location: Reports: Chest Quality: Reports: Ache Severity: Moderate Improves with: Reports: None Worsens with: Reports: None Associated Symptoms: Reports: No Other Symptoms Middle Chest Pain Score (Numeric/FACES): 5 - Related Data Allergies Allergy/AdvReac Type Severity Reaction Status Date / Time ramipril [From [facility]] Allergy Swollen Verified 01/17/19 19:48 Tongue Home Meds: Home Meds Aspirin [Tawanna Chewable] 81 mg PO DAILY 02/21/14 [History] Losartan [Cozaar] 50 mg PO DAILY 02/21/14 [History] glipiZIDE/Metformin HCl [Glipizide-Metformin 5-500 mg] 1 each PO BID 02/21/14 [ History] Insulin Detemir [Levemir] 48 units SQ BEDTIME 10/15/14 [History] Clotrimazole [Clotrimazole 1%] 1 applic TOP BID PRN 03/07/16 [History] atorvaSTATin Calcium [Atorvastatin Calcium] 40 mg PO BEDTIME 03/07/16 [History] Albuterol [IJD: Ventolin HFA] 2 puff INH ASDIRECTED PRN 07/12/17 [History] Insulin Aspart [Novolog Flexpen] 16 units SQ TID 07/12/17 [History] Past Medical History HEENT History: Reports: Impaired Vision Cardiovascular History: Reports: High Cholesterol, Hypertension Respiratory History: Reports: Asthma, SOB Genitourinary History: Reports: Other (See Below) Other Genitourinary History: stress incontinence Endocrine/Metabolic History: Reports: Diabetes, Type II - Infectious Disease History Infectious Disease History: Reports: Chicken Pox, Measles, Mumps - Past Surgical History HEENT Surgical History: Reports: Cataract Surgery GI Surgical History: Reports: Cholecystectomy, Colonoscopy Female Surgical History: Reports: Tubal Ligation Musculoskeletal Surgical History: Reports: Shoulder Surgery Social & Family History - Family History Family Medical History: Noncontributory : Reports: Dialysis Endocrine/Metabolic: Reports: Diabetes, type II Oncologic: Reports: Breast - Caffeine Use Caffeine Use: Reports: Coffee, Soda - Living Situation & Occupation Living situation: Reports: , with Family Occupation: Retired ED ROS GENERAL - Review of Systems Review Of Systems: ROS reveals no pertinent complaints other than HPI. ED EXAM, GENERAL - Physical Exam Exam: See Below Exam Limited By: No Limitations General Appearance: Alert, WD/WN, No Apparent Distress Eye Exam: Bilateral Eye: EOMI, Normal Inspection, PERRL Ears: Normal External Exam, Normal Canal, Hearing Grossly Normal, Normal TMs Nose: Normal Inspection, Normal Mucosa, No Blood Throat/Mouth: Normal Inspection, Normal Lips, Normal Teeth, Normal Gums, Normal Oropharynx, Normal Voice, No Airway Compromise Head: Atraumatic, Normocephalic Neck: Normal Inspection, Supple, Non-Tender, Full Range of Motion Respiratory/Chest: Decreased Breath Sounds, Wheezing (inspiratory upper lobes) Cardiovascular: Normal Peripheral Pulses, Regular Rate, Rhythm, No Edema, No Gallop, No JVD, No Murmur, No Rub GI/Abdominal: Normal Bowel Sounds, Soft, Non-Tender, No Organomegaly, No Distention, No Abnormal Bruit, No Mass (Female) Exam: Deferred Rectal (Female) Exam: Deferred Back Exam: Normal Inspection, Full Range of Motion, NT Extremities: Normal Inspection, Normal Range of Motion, Non-Tender, Normal Capillary Refill, No Pedal Edema Neurological: Alert, Oriented, CN II-XII Intact, Normal Cognition, Normal Gait, Normal Reflexes, No Motor/Sensory Deficits Psychiatric: Normal Affect, Normal Mood Skin Exam: Warm, Dry, Intact, Normal Color, No Rash Lymphatic: No Adenopathy EKG INTERPRETATION EKG Date: 04/07/19 Time: 14:06 Rhythm: Other (sinus rhythm) Rate (Beats/Min): 66 [place]: Normal P-Wave: Present QRS: Normal ST-T: Normal QT: Normal Course - Vital Signs Last Recorded V/S: Last Vital Signs Temp 97.4 F 04/07/19 14:11 Pulse 67 04/07/19 14:11 Resp 24 H 04/07/19 14:11 BP 147/53 H 04/07/19 14:25 Pulse Ox 92 L 04/07/19 14:11 - Orders/Labs/Meds Orders: Active Orders 24 hr Category Date Time Status EKG Documentation Completion [RC] STAT Care 04/07/19 14:06 Active EKG Documentation Completion [RC] STAT Care 04/07/19 17:25 Active Peripheral IV Care [RC] . DIRECTED Care 04/07/19 14:07 Active Peripheral IV Insertion Adult [OM.PC] Stat Oth 04/07/19 14:06 Ordered Labs: Laboratory Tests 04/07/19 04/07/19 04/07/19 Range/Units 14:06 14:25 14:25 WBC 15.7 H (5.0-10.0) 10^3/uL RBC 5.11 (4.2-5.4) 10^6/uL Hgb 14.3 (12.0-16.0) g/dL Hct 44.3 (37.0-47.0) % MCV 86.7 (80-100) fL MCH 28.0 (27.0-34.0) pg MCHC 32.3 L (33.0-35.0) g/dL Plt Count 408 (150-450) 10^3/uL Neut % (Auto) 58.4 (42.2-75.2) % Lymph % (Auto) 34.9 (20.5-50.1) % [place] % (Auto) 5.3 (2-8) % Eos % (Auto) 1.1 (1.0-3.0) % Baso % (Auto) 0.3 (0.0-1.0) % PT 9.4 (9.0-12.0) SEC INR 0.9 (0.9-1.2) Sodium 135 (135-145) mmol/L Potassium 4.2 (3.6-5.0) mmol/L Chloride 102 (101-111) mmol/L Carbon Dioxide 27.0 (21.0-31.0) mmol/L Anion Gap 10.2 BUN 8 (7-18) mg/dL Creatinine 0.6 (0.6-1.3) mg/dL Est Cr Clr Drug Dosing 68.66 mL/min Estimated GFR (MDRD) > 60 BUN/Creatinine Ratio 13.33 Glucose 142 H (74-105) mg/dL Calcium 9.0 (8.4-10.2) mg/dl Total Bilirubin 0.2 (0.2-1.0) mg/dL AST 14 (10-42) IU/L ALT 17 (10-60) IU/L Alkaline Phosphatase 89 (42-121) IU/L Troponin I < 0.02 (0.00-0.02) ng/ml B-Natriuretic Peptide 32 (0-100) pg/ml Total Protein 7.3 (6.7-8.2) g/dl Albumin 3.7 (3.2-5.5) g/dl Globulin 3.6 Albumin/Globulin Ratio 1.03 04/07/19 04/07/19 Range/Units 17:30 17:30 WBC 14.7 H (5.0-10.0) 10^3/uL RBC (4.2-5.4) 10^6/uL Hgb (12.0-16.0) g/dL Hct (37.0-47.0) % MCV (80-100) fL MCH (27.0-34.0) pg MCHC (33.0-35.0) g/dL Plt Count (150-450) 10^3/uL Neut % (Auto) (42.2-75.2) % Lymph % (Auto) (20.5-50.1) % [place] % (Auto) (2-8) % Eos % (Auto) (1.0-3.0) % Baso % (Auto) (0.0-1.0) % PT (9.0-12.0) SEC INR (0.9-1.2) Sodium (135-145) mmol/L Potassium (3.6-5.0) mmol/L Chloride (101-111) mmol/L Carbon Dioxide (21.0-31.0) mmol/L Anion Gap BUN (7-18) mg/dL Creatinine (0.6-1.3) mg/dL Est Cr Clr Drug Dosing mL/min Estimated GFR (MDRD) BUN/Creatinine Ratio Glucose (74-105) mg/dL Calcium (8.4-10.2) mg/dl Total Bilirubin (0.2-1.0) mg/dL AST (10-42) IU/L ALT (10-60) IU/L Alkaline Phosphatase (42-121) IU/L Troponin I < 0.02 (0.00-0.02) ng/ml B-Natriuretic Peptide (0-100) pg/ml Total Protein (6.7-8.2) g/dl Albumin (3.2-5.5) g/dl Globulin Albumin/Globulin Ratio Meds: Medications Discontinued Medications Generic Name Dose Route Start Last Admin Trade Name Freq PRN Reason Stop Dose Admin Nitroglycerin 0.4 mg 04/07/19 14:21 04/07/19 14:25 Nitrostat SL 04/07/19 14:22 0.4 mg Q5M ONE Administration Sodium Chloride 10 ml 04/07/19 14:06 04/07/19 14:18 Saline Flush FLUSH 10 ml ASDIRECTED PRN Administration Keep Vein Open - Radiology Interpretation Free Text/Narrative:: Chest xray: No acute findings See rad report - Re-Assessments/Exams Free Text/Narrative Re-Assessment/Exam: 04/07/19 22:34 Labs and diagnostics discussed with the patient. Explained angina to the patient. Encouraged her to follow up with her PCP to be set up for cardiology referral and/or exercise stress test. Patient states understanding. Also discussed findings with PCP Ching Baird NP. Departure - Departure Time of Disposition: 18:37 Disposition: Home, Self-Care 01 Reason for Transfer *Q: Other Condition: Fair Clinical Impression: Nonspecific chest pain Instructions: Nonspecific Chest Pain, [id number] Referrals: PCP,None [Primary Care Provider] - Forms: ED Department Discharge Additional Instructions: Follow up with Ching Baird next week regarding a stress test Return to the ER with any further problems - My Orders Last 24 Hours: My Active Orders 04/07/19 14:06 EKG Documentation Completion [RC] STAT Peripheral IV Insertion Adult [OM.PC] Stat 04/07/19 14:07 Peripheral IV Care [RC] . DIRECTED 04/07/19 17:25 EKG Documentation Completion [RC] STAT - Assessment/Plan Last 24 Hours: My Active Orders 04/07/19 14:06 EKG Documentation Completion [RC] STAT Peripheral IV Insertion Adult [OM.PC] Stat 04/07/19 14:07 Peripheral IV Care [RC] . DIRECTED 04/07/19 17:25 EKG Documentation Completion [RC] STAT
[2019-04-07] MEDS ORDERED: Nitroglycerin 0.4 MG Tab.SL SL ONE (14:21)
[2019-04-07 14:25] VITALS: BP 147/53
--- NOTE | 2019-04-07 14:31 | CR ---
EXAMINATION: Chest 1V Frontal SEX: Female AGE: 68 years CLINICAL HISTORY: 68-year-old obese female complaining of chest pain. INTERPRETATION: (Upright AP portable chest) external admissions gate attendant leads. Normal cardiac silhouette without new cephalization of vascular flow, alveolar edema or dependent pleural effusion when compared to 27 October 2018 and earlier 12 July 2017 exams. No new lung mass, hilar lymphadenopathy or focal lobar pneumonia. No atelectasis/collapse. No pneumothorax. CONCLUSION: No acute new cardiopulmonary abnormality.
[2019-04-07 14:50] LABS: ANION GAP 10.2; CHLORIDE,CL 102 mmol/L (101-111); SODIUM,NA 135 mmol/L (135-145)
== END 2019-04-07 19:20 | disposition home or self-care (01) ==
LOC: DL.ED 13:58
DX: R07.89 Other chest pain (principal); E78.00 Pure hypercholesterolemia, unspecified; E11.9 Type 2 diabetes mellitus without complications; I10 Essential (primary) hypertension; J45.909 Unspecified asthma, uncomplicated; Z88.8 Allergy status to other drugs, medicaments and biological substances; Z79.82 Long term (current) use of aspirin; Z79.899 Other long term (current) drug therapy; Z79.4 Long term (current) use of insulin
CPT/HCPCS: 36415; 71045; 80053; 83880; 84484; 85025; 85048; 85610; 93005; 99285-25; A9270-GY

== ENCOUNTER 2020-01-08 09:14 | Emergency (ER) | payer MEDICARE, MEDICAID ==
[2020-01-08 09:23] VITALS: BP 149/73; PULSE 71
--- NOTE | 2020-01-08 09:41 | EDM.PDOC ---
ED HPI GENERAL MEDICAL PROBLEM - General Chief Complaint: Abdominal Pain Stated Complaint: REDNESS ON ABDOMEN, PAIN Time Seen by Provider: 01/08/20 09:41 Source of Information: Reports: Patient, Old Records, RN, RN Notes Reviewed History Limitations: Reports: No Limitations - History of Present Illness INITIAL COMMENTS - FREE TEXT/NARRATIVE: 69 y.o F presents with redness to the groin area that began approx 1 week ago. Pt reports seeing provider 2 days ago in clinic and was given clotrimazole cream but reports that it isn't helping. Pt denies itching but reports that it hurts. Pt also reports urinary frequency. Reports Tylenol last night but no medications today. Denies fevers. Onset: Gradual Duration: Week(s): (1) Location: Reports: Abdomen, Pelvis Quality: Reports: Burning Severity: Severe Improves with: Reports: None Worsens with: Reports: None Associated Symptoms: Reports: No Other Symptoms Treatments [employer]: Reports: Acetaminophen, Other Medication(s) Abdomen Pain Score (Numeric/FACES): 8 - Related Data Allergies Allergy/AdvReac Type Severity Reaction Status Date / Time ramipril [From [facility]] Allergy Swollen Verified 01/08/20 09:23 Tongue Home Meds: Home Meds Aspirin [Tawanna Chewable] 81 mg PO DAILY 02/21/14 [History] Losartan [Cozaar] 50 mg PO DAILY 02/21/14 [History] glipiZIDE/Metformin HCl [Glipizide-Metformin 5-500 mg] 1 each PO BID 02/21/14 [ History] Insulin Detemir [Levemir] 48 units SQ BEDTIME 10/15/14 [History] Clotrimazole [Clotrimazole 1%] 1 applic TOP BID PRN 03/07/16 [History] atorvaSTATin Calcium [Atorvastatin Calcium] 40 mg PO BEDTIME 03/07/16 [History] Albuterol [IJD: Ventolin HFA] 2 puff INH ASDIRECTED PRN 07/12/17 [History] Insulin Aspart [Novolog Flexpen] 16 units SQ TID 07/12/17 [History] Past Medical History HEENT History: Reports: Impaired Vision Cardiovascular History: Reports: High Cholesterol, Hypertension Respiratory History: Reports: Asthma, SOB Genitourinary History: Reports: Other (See Below) Other Genitourinary History: stress incontinence Endocrine/Metabolic History: Reports: Diabetes, Type II - Infectious Disease History Infectious Disease History: Reports: Chicken Pox, Measles, Mumps - Past Surgical History HEENT Surgical History: Reports: Cataract Surgery GI Surgical History: Reports: Cholecystectomy, Colonoscopy Female Surgical History: Reports: Tubal Ligation Musculoskeletal Surgical History: Reports: Shoulder Surgery Social & Family History - Family History Family Medical History: Noncontributory : Reports: Dialysis Endocrine/Metabolic: Reports: Diabetes, type II Oncologic: Reports: Breast - Tobacco Use Smoking Status *Q: Never Smoker Second Hand Smoke Exposure: No - Caffeine Use Caffeine Use: Reports: None - Recreational Drug Use Recreational Drug Use: No - Living Situation & Occupation Living situation: Reports: , with Family Occupation: Retired ED ROS GENERAL - Review of Systems Review Of Systems: Comprehensive ROS is negative, except as noted in HPI. ED EXAM, GI/ABD - Physical Exam Exam: See Below Exam Limited By: No Limitations General Appearance: Alert, WD/WN, No Apparent Distress Throat/Mouth: Normal Inspection, Normal Voice, No Airway Compromise Head: Atraumatic, Normocephalic Neck: Normal Inspection Respiratory/Chest: No Respiratory Distress Cardiovascular: Regular Rate, Rhythm GI/Abdominal Exam: Normal Bowel Sounds, Soft, Pelvis Stable, Tender (primarily skin tenderness, suprapubic, Rt groin, and RLQ abdominal wall). No: Guarding, Rigid, Rebound (Female) Exam: Deferred Back Exam: Normal Inspection Extremities: Normal Inspection Neurological: Alert, Oriented, No Motor/Sensory Deficits Psychiatric: Normal Mood Skin Exam: Warm, Dry, Erythema (with well defined borders at suparpubic, Rt groin, and Rt lower abd. wall consistent with candidia infections.) Course - Vital Signs Last Recorded V/S: Last Vital Signs Temp 98.4 F 01/08/20 09:18 Pulse 71 01/08/20 09:18 Resp 18 01/08/20 09:18 BP 149/73 H 01/08/20 09:18 Pulse Ox 95 01/08/20 09:18 - Orders/Labs/Meds Labs: Laboratory Tests 01/08/20 01/08/20 Range/Units 09:29 09:50 WBC 9.7 (5.0-10.0) 10^3/uL RBC 4.79 (4.2-5.4) 10^6/uL Hgb 13.7 (12.0-16.0) g/dL Hct 42.0 (37.0-47.0) % MCV 87.7 (80-100) fL MCH 28.6 (27.0-34.0) pg MCHC 32.6 L (33.0-35.0) g/dL Plt Count 391 (150-450) 10^3/uL Neut % (Auto) 59.2 (42.2-75.2) % Lymph % (Auto) 32.3 (20.5-50.1) % [place] % (Auto) 6.8 (2-8) % Eos % (Auto) 1.3 (1.0-3.0) % Baso % (Auto) 0.4 (0.0-1.0) % Urine Color Yellow (YELLOW) Urine Appearance Clear (CLEAR) Urine pH 6.0 (5.0-9.0) Ur Specific [place] 1.020 (1.005-1.030) Urine Protein 30 H (NEGATIVE) Urine Glucose (UA) Negative (NEGATIVE) Urine Ketones Negative (NEGATIVE) Urine Occult Blood Trace-intact H (NEGATIVE) Urine Nitrite Negative (NEGATIVE) Urine Bilirubin Negative (NEGATIVE) Urine Urobilinogen 0.2 (0.2-1.0) mg/dL Ur Leukocyte Esterase Negative (NEGATIVE) Urine RBC 0-5 /HPF Urine WBC 0-5 (0-5/HPF) /HPF Ur Epithelial Cells Few (NOT SEEN) /HPF Amorphous Sediment Rare (NOT SEEN) /HPF Urine Bacteria Rare (0-FEW/HPF) /HPF Urine Mucus Not seen (NOT SEEN) /LPF Meds: Medications Discontinued Medications Generic Name Dose Route Start Last Admin Trade Name Freq PRN Reason Stop Dose Admin Fluconazole 200 mg 01/08/20 10:07 Diflucan PO 01/08/20 10:08 ONETIME ONE Departure - Departure Time of Disposition: 10:13 Disposition: Home, Self-Care 01 Condition: Good Clinical Impression: Yeast dermatitis - Discharge Information *PRESCRIPTION DRUG MONITORING PROGRAM REVIEWED*: Not Applicable *COPY OF PRESCRIPTION DRUG MONITORING REPORT IN PATIENT LASHAY: Not Applicable Instructions: Skin Yeast Infection Forms: ED Department Discharge Additional Instructions: Rx: Diflucan 100mg Continue using the Clotrimazole cream. Follow up in clinic in 3 to 5 days for recheck. Sepsis Event Note - Evaluation Sepsis Screening Result: No Definite Risk - Focused Exam Vital Signs: Vital Signs Temp Pulse Resp BP Pulse Ox 01/08/20 09:18 98.4 F 71 18 149/73 H 95 Date Exam was Performed: 01/08/20 Time Exam was Performed: 10:09
[2020-01-08] MEDS ORDERED: Fluconazole 100 MG Tab PO ONE (10:07)
== END 2020-01-08 10:20 | disposition home or self-care (01) ==
LOC: DL.ED 09:14
DX: B37.2 Candidiasis of skin and nail (principal); E78.00 Pure hypercholesterolemia, unspecified; I10 Essential (primary) hypertension; J45.909 Unspecified asthma, uncomplicated; E11.9 Type 2 diabetes mellitus without complications; Z79.4 Long term (current) use of insulin; Z79.899 Other long term (current) drug therapy; Z88.8 Allergy status to other drugs, medicaments and biological substances; Z79.82 Long term (current) use of aspirin
CPT/HCPCS: 36415; 81001; 85025; 99283; A9270

== ENCOUNTER 2020-08-04 17:08 | Emergency (ER) | payer MEDICARE, MEDICAID ==
[2020-08-04 17:39] VITALS: BP 138/72; PULSE 95
[2020-08-04] MEDS ORDERED: Fluconazole 100 MG Tab PO ONE (18:25)
--- NOTE | 2020-08-04 18:27 | EDM.PDOC ---
ED HPI GENERAL MEDICAL PROBLEM - General Chief Complaint: Skin Complaint Stated Complaint: RIGHT LEG INFLAMMED, PAIN Time Seen by Provider: 08/04/20 18:00 Source of Information: Reports: Patient, RN, RN Notes Reviewed History Limitations: Reports: No Limitations - History of Present Illness INITIAL COMMENTS - FREE TEXT/NARRATIVE: Patient presents to the ED via personal vehicle with complaints of rash to groin for over one month. The patient states she has been seen in the clinic three times in this time period for this rash and has been treated with Clotrimazole/Betamethasone cream with one dose of Fluconazole PO which did not help the rash. Additionally, she received Nystatin powder, which she has used two bottles of with no alleviation of pruritus or burning. She has been treated for UTI while this rash has been present and has received Ciprofloxacin which caused significant loose stools, so the antibiotic was stopped and changed to Macrobid. She states the erythema and pain to the rash is worsening and she is becoming frustrated with it. She denies fever, shaking chills, headache, palpitations, nausea, vomiting, or diarrhea. She states she does her best to keep the area clean and dry, but the rash persists. 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 Right Upper Leg Pain Score (Numeric/FACES): 10 - Related Data Allergies Allergy/AdvReac Type Severity Reaction Status Date / Time ramipril [From [facility]] Allergy Swollen Verified 08/04/20 17:39 Tongue Home Meds: Home Meds Aspirin [Tawanna Chewable] 81 mg PO DAILY 02/21/14 [History] Losartan [Cozaar] 50 mg PO DAILY 02/21/14 [History] glipiZIDE/Metformin HCl [Glipizide-Metformin 5-500 mg] 1 each PO BID 02/21/14 [History] Insulin Detemir [Levemir] 50 units SQ BEDTIME 10/15/14 [History] atorvaSTATin Calcium [Atorvastatin Calcium] 40 mg PO BEDTIME 03/07/16 [History] Albuterol [IJD: Ventolin HFA] 2 puff INH ASDIRECTED PRN 07/12/17 [History] Insulin Aspart [Novolog Flexpen] 16 units SQ TID 07/12/17 [History] Past Medical History HEENT History: Reports: Impaired Vision Cardiovascular History: Reports: High Cholesterol, Hypertension Respiratory History: Reports: Asthma, SOB Genitourinary History: Reports: Other (See Below) Other Genitourinary History: stress incontinence Endocrine/Metabolic History: Reports: Diabetes, Type II - Infectious Disease History Infectious Disease History: Reports: Chicken Pox, Measles, Mumps - Past Surgical History HEENT Surgical History: Reports: Cataract Surgery GI Surgical History: Reports: Cholecystectomy, Colonoscopy Female Surgical History: Reports: Tubal Ligation Other Female Surgeries/Procedures: cysts by bladder Musculoskeletal Surgical History: Reports: Shoulder Surgery Social & Family History - Family History Family Medical History: No Pertinent Family History : Reports: Dialysis Endocrine/Metabolic: Reports: Diabetes, type II Oncologic: Reports: Breast - Tobacco Use Tobacco Use Status *Q: Never Tobacco User Second Hand Smoke Exposure: No - Caffeine Use Caffeine Use: Reports: None - Recreational Drug Use Recreational Drug Use: No - Living Situation & Occupation Living situation: Reports: , with Family Occupation: Retired ED ROS GENERAL - Review of Systems Review Of Systems: Comprehensive ROS is negative, except as noted in HPI. ED EXAM, SKIN/RASH Exam: See Below Exam Limited By: No Limitations General Appearance: Alert, WD/WN, No Apparent Distress Back Exam: Normal Inspection, Full Range of Motion Extremities: Normal Inspection, Normal Range of Motion, Non-Tender, No Pedal Ed lucero, Normal Capillary Refill Neurological: Alert, Oriented, CN II-XII Intact, Normal Cognition, Normal Gait, No Motor/Sensory Deficits Psychiatric: Normal Affect, Normal Mood, Anxious Skin: Erythema, Rash (Erythematic yeast-like rash to right groin; Area wet; No open sores ) Location, Skin: Groin Characteristics: Erythematous Associated features: Warmth, Tenderness, Inflammation, Weeping Course - Vital Signs Last Recorded V/S: Last Vital Signs Temp 98.2 F 08/04/20 17:32 Pulse 95 08/04/20 17:32 Resp 18 08/04/20 17:32 BP 138/72 08/04/20 17:32 Pulse Ox 93 L 08/04/20 17:32 - Orders/Labs/Meds Labs: Laboratory Tests 08/04/20 08/04/20 Range/Units 18:10 18:10 WBC 14.5 H (5.0-10.0) 10^3/uL RBC 4.69 (4.2-5.4) 10^6/uL Hgb 13.5 (12.0-16.0) g/dL Hct 41.2 (37.0-47.0) % MCV 87.8 (80-100) fL MCH 28.8 (27.0-34.0) pg MCHC 32.8 L (33.0-35.0) g/dL Plt Count 406 (150-450) 10^3/uL Neut % (Auto) 63.1 (42.2-75.2) % Lymph % (Auto) 30.6 (20.5-50.1) % [place] % (Auto) 5.3 (2-8) % Eos % (Auto) 0.9 L (1.0-3.0) % Baso % (Auto) 0.1 (0.0-1.0) % Sodium 137 (136-145) mmol/L Potassium 4.3 (3.5-5.1) mmol/L Chloride 102 (98-107) mmol/L Carbon Dioxide 27 (21-32) mmol/L Anion Gap 12.3 (7-13) mEq/L BUN 17 (7-18) mg/dL Creatinine 0.78 (0.55-1.02) mg/dL Est Cr Clr Drug Dosing 51.37 mL/min Estimated GFR (MDRD) > 60 BUN/Creatinine Ratio 21.8 (No establ ref range) Glucose 160 H (74-99) mg/dL Calcium 9.1 (8.5-10.1) mg/dL Total Bilirubin 0.1 L (0.2-1.0) mg/dL AST 14 L (15-37) U/L ALT 28 (14-59) U/L Alkaline Phosphatase 112 (46-116) U/L C-Reactive Protein 1.0 H (0.0-0.9) mg/dL Total Protein 7.5 (6.4-8.2) g/dL Albumin 3.4 (3.4-5.0) g/dL Globulin 4.1 Albumin/Globulin Ratio 0.8 Meds: Medications Discontinued Medications Generic Name Dose Route Start Last Admin Trade Name Freq PRN Reason Stop Dose Admin Fluconazole 150 mg 08/04/20 18:25 08/04/20 18:33 Diflucan PO 08/04/20 18:26 150 mg ONETIME ONE Administration - Re-Assessments/Exams Free Text/Narrative Re-Assessment/Exam: 08/04/20 Will treat with Fluconazole 150mg weekly x4 weeks. Patient received first dose today. Patient instructed to keep groin clean and dry, including placing a cloth in between skin folds. Patient instructed to use over the counter diaper rash cream mixed with over the counter hydrocortisone cream four times a day, as rash persists. Departure - Departure Time of Disposition: 18:39 Disposition: Home, Self-Care 01 Condition: Good Clinical Impression: Yeast infection of the skin - Discharge Information *PRESCRIPTION DRUG MONITORING PROGRAM REVIEWED*: Not Applicable *COPY OF PRESCRIPTION DRUG MONITORING REPORT IN PATIENT LASHAY: Not Applicable Instructions: Skin Yeast Infection Forms: ED Department Discharge Additional Instructions: Rx: Fluconazole 1.) You will take the Fluconazole once a week for four weeks, you received your first dose today. The next doses will be on 08/11/20, 08/18/20, and 08/25/20. 2.) Keep skin dry. 3.) Mix diaper rash cream and hydrocortisone cream together 1:1 and apply to rash four times per day. Apply this mix after skin in fully dry. 4.) If needed, keep a light cloth in between skin folds to keep area dry. 5.) Follow up with your primary care provider regarding today's visit; you may need to change Janumet to a different antidiabetic medication. Sepsis Event Note (ED) - Evaluation Sepsis Screening Result: No Definite Risk - Focused Exam Vital Signs: Vital Signs Temp Pulse Resp BP Pulse Ox 08/04/20 17:32 98.2 F 95 18 138/72 93 L
[2020-08-04 18:41] LABS: ANION GAP 12.3 mEq/L (7-13); CHLORIDE,CL 102 mmol/L (98-107); SODIUM,NA 137 mmol/L (136-145)
== END 2020-08-04 19:00 | disposition home or self-care (01) ==
LOC: DL.ED 17:08
DX: B37.2 Candidiasis of skin and nail (principal); E78.00 Pure hypercholesterolemia, unspecified; I10 Essential (primary) hypertension; J45.909 Unspecified asthma, uncomplicated; E11.9 Type 2 diabetes mellitus without complications; Z79.82 Long term (current) use of aspirin; Z79.4 Long term (current) use of insulin; Z79.899 Other long term (current) drug therapy; Z88.8 Allergy status to other drugs, medicaments and biological substances
CPT/HCPCS: 36415; 80053; 85025; 86140; 99283; A9270

== ENCOUNTER 2020-09-02 19:08 | Emergency (ER) | payer MEDICARE, MEDICAID | END 2020-09-02 20:34 | disposition left against medical advice (07) | LOC: DL.ED 19:08 | DX: Z53.21 Procedure and treatment not carried out due to patient leaving prior to being seen by health care provider (principal) ==

== ENCOUNTER 2020-09-29 09:15 | Emergency (ER) | payer MEDICARE, MEDICAID ==
--- NOTE | 2020-09-29 09:45 | EDM.PDOC ---
ED HPI GENERAL MEDICAL PROBLEM - General Chief Complaint: General Stated Complaint: RUNNY NOSE Time Seen by Provider: 09/29/20 09:40 Source of Information: Reports: Patient History Limitations: Reports: No Limitations - History of Present Illness INITIAL COMMENTS - FREE TEXT/NARRATIVE: This 70 yo female patient reports to the ED with a cough and runny nose that has been getting worse. The patient was seen at the [facility] yesterday and started on cough medication with codeine. The patient reports her cough has gotten worse over the night and is now coughing up white phlegm. 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(s) - Related Data Allergies Allergy/AdvReac Type Severity Reaction Status Date / Time amoxicillin [From Augmentin] Allergy Blisters Verified 09/29/20 09:28 ciprofloxacin Allergy Diarrhea Verified 09/29/20 09:28 citalopram [From Celexa] Allergy Swollen Verified 09/29/20 09:28 Tongue clavulanic acid Allergy Blisters Verified 09/29/20 09:28 [From Augmentin] FD and C blue no.2 Allergy Other Verified 09/29/20 09:28 (indigotine) prednisone Allergy Swollen Verified 09/29/20 09:28 Tongue ramipril [From Altace] Allergy Swollen Verified 09/29/20 09:28 Tongue Home Meds: Home Meds Aspirin [Tawanna Chewable] 81 mg PO DAILY 02/21/14 [History] Losartan [Cozaar] 50 mg PO DAILY 02/21/14 [History] Insulin Detemir [Levemir] 50 units SQ BEDTIME 10/15/14 [History] atorvaSTATin Calcium [Atorvastatin Calcium] 40 mg PO BEDTIME 03/07/16 [History] Albuterol [IJD: Ventolin HFA] 2 puff INH ASDIRECTED PRN 07/12/17 [History] Insulin Aspart [Novolog Flexpen] 16 units SQ TID 07/12/17 [History] Liraglutide [Victoza] 0.1 ml SQ DAILY 09/29/20 [History] Past Medical History HEENT History: Reports: Impaired Vision Other HEENT History: wears glasses Cardiovascular History: Reports: High Cholesterol, Hypertension Respiratory History: Reports: Asthma, SOB Genitourinary History: Reports: Other (See Below) Other Genitourinary History: stress incontinence 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 History: Reports: None Neurological History: Reports: None Psychiatric History: Reports: None Endocrine/Metabolic History: Reports: Diabetes, Type II Hematologic History: Reports: None Immunologic History: Reports: None Oncologic (Cancer) History: Reports: None Dermatologic History: Reports: None - Infectious Disease History Infectious Disease History: Reports: Chicken Pox, Measles, Mumps - Past Surgical History Head Surgeries/Procedures: Reports: None HEENT Surgical History: Reports: Cataract Surgery GI Surgical History: Reports: Cholecystectomy, Colonoscopy Female Surgical History: Reports: Tubal Ligation Other Female Surgeries/Procedures: cysts by bladder Musculoskeletal Surgical History: Reports: Shoulder Surgery Social & Family History - Family History Family Medical History: No Pertinent Family History : Reports: Dialysis Endocrine/Metabolic: Reports: Diabetes, type II Oncologic: Reports: Breast - Tobacco Use Tobacco Use Status *Q: Current Every Day Tobacco User Years of Tobacco use: 49 Packs/Tins Daily: 0.5 Second Hand Smoke Exposure: No - Caffeine Use Caffeine Use: Reports: Coffee - Recreational Drug Use Recreational Drug Use: No - Living Situation & Occupation Living situation: Reports: , with Family Occupation: Retired ED ROS GENERAL - Review of Systems Review Of Systems: Comprehensive ROS is negative, except as noted in HPI. ED EXAM, GENERAL - Physical Exam Exam: See Below Exam Limited By: No Limitations General Appearance: Alert, WD/WN, Mild Distress Eye Exam: Bilateral Eye: EOMI, Normal Inspection, PERRL Ears: Normal External Exam, Normal Canal, Hearing Grossly Normal, Normal TMs Nose: Normal Inspection, Normal Mucosa, No Blood Throat/Mouth: Inflammation Head: Atraumatic, Normocephalic Neck: Normal Inspection, Supple, Non-Tender, Full Range of Motion Respiratory/Chest: Rhonchi (faint), Wheezing Cardiovascular: Normal Peripheral Pulses, Regular Rate, Rhythm, No Edema, No Gallop, No JVD, No Murmur, No Rub GI/Abdominal: Normal Bowel Sounds, Soft, Non-Tender, No Organomegaly, No Distention, No Abnormal Bruit, No Mass (Female) Exam: Deferred Rectal (Female) Exam: Deferred Back Exam: Normal Inspection, Full Range of Motion, NT Extremities: Normal Inspection, Normal Range of Motion, Non-Tender, Normal Capillary Refill, No Pedal Edema Neurological: Alert, Oriented, CN II-XII Intact, Normal Cognition, Normal Gait, Normal Reflexes, No Motor/Sensory Deficits Psychiatric: Normal Affect, Normal Mood Skin Exam: Warm, Dry, Intact, Normal Color, No Rash Lymphatic: No Adenopathy Course - Vital Signs Last Recorded V/S: Last Vital Signs Temp 36.4 C 09/29/20 09:22 Pulse 92 09/29/20 09:22 Resp 16 09/29/20 09:22 BP 133/65 09/29/20 09:22 Pulse Ox 95 09/29/20 09:22 Departure - Departure Time of Disposition: 09:44 Disposition: Home, Self-Care 01 Condition: Fair Clinical Impression: URI (upper respiratory infection) Qualifiers: URI type: unspecified URI Qualified Code(s): J06.9 - Acute upper respiratory infection, unspecified - Discharge Information *PRESCRIPTION DRUG MONITORING PROGRAM REVIEWED*: Not Applicable Instructions: Upper Respiratory Infection, Adult, [id number] Forms: ED Department Discharge Care Plan Goals: The patient was advised of the examination results during the visit. The patient was discharged with a script for Keflex (500 mg) #30 to take 1 by mouth 3 times per day for 10 days. If the patient has any additional symptoms or concerns, the patient should either return to the emergency department or visit her primary care facility. Sepsis Event Note (ED) - Evaluation Sepsis Screening Result: No Definite Risk - Focused Exam Vital Signs: Vital Signs Temp Pulse Resp BP Pulse Ox 09/29/20 09:22 36.4 C 92 16 133/65 95
== END 2020-09-29 10:02 | disposition home or self-care (01) ==
LOC: DL.ED 09:15
CPT/HCPCS: 99283

== ENCOUNTER 2022-04-21 17:45 | Emergency (ER) | payer MEDICARE, MEDICAID ==
[2022-04-21 17:58] VITALS: BP 157/63; PULSE 94
[2022-04-21] MEDS ORDERED: Clindamycin in 0.9 % Sod Chlor 900 MG in Premix Bag 1 BAG IV ONE ×2 (18:16)
[2022-04-21] MEDS ORDERED: cefTRIAXone 2 GM in Sodium Chloride 0.9% 100 ML IV ONE (18:16)
[2022-04-21] MEDS ORDERED: Sodium Chloride 0.9% 10 ML Syringe FLUSH PRN (18:17)
[2022-04-21 19:17] LABS: ANION GAP 11.3 mEq/L (7-13); CHLORIDE,CL 98 mmol/L (98-107); ESTIMATED GFR 64 mL/min (>=60); SODIUM,NA 133 mmol/L (136-145)
== END 2022-04-21 20:00 | disposition home or self-care (01) ==
LOC: DL.ED 17:45
DX: L02.31 Cutaneous abscess of buttock (principal); E78.00 Pure hypercholesterolemia, unspecified; I10 Essential (primary) hypertension; E11.9 Type 2 diabetes mellitus without complications; F17.210 Nicotine dependence, cigarettes, uncomplicated; Z88.0 Allergy status to penicillin; Z88.1 Allergy status to other antibiotic agents; Z88.8 Allergy status to other drugs, medicaments and biological substances; Z79.899 Other long term (current) drug therapy; Z79.82 Long term (current) use of aspirin; Z79.4 Long term (current) use of insulin; Z90.49 Acquired absence of other specified parts of digestive tract
CPT/HCPCS: 36415; 80053; 83605; 84145; 85025; 86140; 87040; 96365; 96367; 99283-25; 99284; J0696; J3490

== ENCOUNTER 2022-11-29 11:59 | Emergency (ER) | payer MEDICARE, MEDICAID | END 2022-11-29 13:51 | LOC: DL.ED 11:59 | DX: Z53.21 Procedure and treatment not carried out due to patient leaving prior to being seen by health care provider (principal) ==

== ENCOUNTER 2023-01-24 06:52 | Inpatient (IN) | payer MEDICARE, MEDICAID ==
[2023-01-24 07:29] LABS: BASOPHILS PERCENT AUTO 0.4 % (0.0-1.0); EOSINOPHILS PERCENT AUTO 0.7 % (1.0-3.0); HEMATOCRIT 39.7 % (37.0-47.0); HEMOGLOBIN 12.9 g/dL (12.0-16.0); LYMPHOCYTES PERCENT AUTO 30.6 % (20.5-50.1); MEAN CORPUSCULAR HEMOGLOBIN 29.3 pg (27.0-34.0); MEAN CORPUSCULAR HGB CONC 32.5 g/dL (33.0-35.0); MONOCYTES PERCENT AUTO 6.4 % (2-8); NEUTROPHILS PERCENT AUTO 61.9 % (42.2-75.2); PLATELET COUNT,PLT 347 10^3/uL (150-450); RED BLOOD CELL COUNT 4.41 10^6/uL (4.2-5.4); WHITE BLOOD CELL COUNT,WBC 12.6 10^3/uL (5.0-10.0)
[2023-01-24] MEDS: Sodium Chloride 0.9% 10 ML Syringe FLUSH PRN ×2 (07:41→08:18)
[2023-01-24 07:48] LABS: AMYLASE 20 U/L (25-115); LIPASE 66 U/L (73-393)
[2023-01-24 07:50] LABS: B-TYPE NATRIURETIC PEPTIDE,BNP 624 pg/ml (0-100)
[2023-01-24 07:55] LABS: ALANINE AMINOTRANSFERASE,ALT 22 U/L (14-59); ALBUMIN 3.1 g/dL (3.4-5.0); ALKALINE PHOSPHATASE 111 U/L (46-116); ANION GAP 11.6 mEq/L (7-13); ASPARTATE AMNIOTRANSFERASE,AST 10 U/L (15-37); BILIRUBIN TOTAL 0.2 mg/dL (0.2-1.0); BLOOD UREA NITROGEN,BUN 12 mg/dL (7-18); BUN/CREATININE RATIO 13.8 (No establ ref range); CALCIUM 8.5 mg/dL (8.5-10.1); CARBON DIOXIDE,CO2 29 mmol/L (21-32); CHLORIDE,CL 104 mmol/L (98-107); CREATININE 0.87 mg/dL (0.55-1.02); EST CRCL DRUG DOSING (CG) 46.91 mL/min; GLUCOSE RANDOM 146 mg/dL (70-99); POTASSIUM,K 4.6 mmol/L (3.5-5.1); PROTEIN TOTAL,TP 6.8 g/dL (6.4-8.2); SODIUM,NA 140 mmol/L (136-145)
[2023-01-24 07:56] LABS: A/G RATIO 0.84; C-REACTIVE PROTEIN < 0.2 mg/dL (0.0-0.9); ESTIMATED GFR 71 mL/min (>=60); LACTIC ACID 0.9 mmol/L (0.4-2.0)
[2023-01-24 07:59] LABS: PTT,PARTIAL THROMBOPLSTIN TIME 25.2 SEC (22.0-34.0)
[2023-01-24] MEDS ORDERED: Furosemide 40 MG/4 ML VIAL IVPUSH ONE (08:12)
[2023-01-24 08:23] LABS: APPEARANCE,URINE CLEAR (CLEAR); BILIRUBIN,URINE NEGATIVE (NEGATIVE); COLOR,URINE YELLOW (YELLOW); GLUCOSE,URINE NEGATIVE (NEGATIVE); KETONES,URINE NEGATIVE (NEGATIVE); LEUKOCYTE ESTERASE,URINE NEGATIVE (NEGATIVE); NITRITE,URINE NEGATIVE (NEGATIVE); OCCULT BLOOD,URINE NEGATIVE (NEGATIVE); PROTEIN,URINE 100 (NEGATIVE); UROBILINOGEN,URINE 0.2 mg/dL (0.2-1.0)
[2023-01-24 08:45] LABS: BACTERIA,URINE FEW /HPF (0-FEW/HPF); EPITHELIAL CELLS,URINE FEW /HPF (NOT SEEN); RBC,URINE 0-5 /HPF (0-5); WBC,URINE 0-5 /HPF (0-5/HPF)
[2023-01-24] MEDS ORDERED: Acetaminophen 325 MG Tab PO PRN (10:36)
[2023-01-24] MEDS ORDERED: Polyethylene Glycol 3350 Powder 17 GM Packet PO PRN (10:36)
[2023-01-24] MEDS ORDERED: Temazepam 15 MG Cap PO PRN (10:36)
[2023-01-24] MEDS ORDERED: Ondansetron 4 MG/2 ML SDV IVPUSH PRN (10:36)
[2023-01-24] MEDS ORDERED: HYDROmorphone 0.5 MG/0.5 ML Syringe IVPUSH PRN (10:36)
[2023-01-24] MEDS ORDERED: Sennosides/Docusate Sodium 50-8.6 MG Tab PO PRN (10:36)
[2023-01-24] MEDS ORDERED: Acetaminophen/oxyCODONE 325-5 MG Tab PO PRN (10:36)
[2023-01-24] MEDS ORDERED: guaiFENesin/Dextromethorphan 100-10 MG/5 ML Soln 5 ML Cup PO PRN (10:49)
[2023-01-24 11:13] LABS: T4 FREE 1.17 ng/dL (0.76-1.46); TSH ULTRASENSITIVE 1.82 uIU/mL (0.36-3.74)
[2023-01-24] MEDS ORDERED: Non-Formulary Medication 1 Each (Semaglutide [Ozempic] 1 MG/0.75 ML Pen.Injctr) SQ SCH (12:30)
[2023-01-24] MEDS ORDERED: Dexamethasone 4 MG/ML SDV IVPUSH ONE (13:21)
[2023-01-24] MEDS: guaiFENesin 100 MG/5 ML Soln 5 ML UD Cup PO SCH ×2 (13:57→21:08)
[2023-01-24] MEDS: Carvedilol 6.25 MG Tab PO SCH (17:48)
[2023-01-24] MEDS ORDERED: guaiFENesin 600 MG Tab.ER PO SCH (21:00)
[2023-01-24] MEDS: atorvaSTATin 20 MG Tab PO SCH (21:08)
[2023-01-24] MEDS: Insulin Glarg,Human.Rec.Analog 100 Unit/ML SUBCUT SCH (21:10)
[2023-01-24] MEDS: Zolpidem 5 MG Tab PO PRN (21:40)
[2023-01-25] MEDS: Albuterol/Ipratropium 3.0-0.5 MG/3 ML Neb Soln NEB PRN (02:18)
[2023-01-25 06:24] LABS: BASOPHILS PERCENT AUTO 0.1 % (0.0-1.0); EOSINOPHILS PERCENT AUTO 0.1 % (1.0-3.0); HEMOGLOBIN 12.4 g/dL (12.0-16.0); LYMPHOCYTES PERCENT AUTO 22.7 % (20.5-50.1); MEAN CORPUSCULAR HGB CONC 31.8 g/dL (33.0-35.0); MEAN CORPUSCULAR VOLUME 91.1 fL (80-100); MONOCYTES PERCENT AUTO 5.4 % (2-8); NEUTROPHILS PERCENT AUTO 71.7 % (42.2-75.2); PLATELET COUNT,PLT 354 10^3/uL (150-450); RED BLOOD CELL COUNT 4.28 10^6/uL (4.2-5.4); WHITE BLOOD CELL COUNT,WBC 12.9 10^3/uL (5.0-10.0)
[2023-01-25 06:46] LABS: ANION GAP 11.3 mEq/L (7-13); CALCIUM 8.5 mg/dL (8.5-10.1); CREATININE 0.81 mg/dL (0.55-1.02); EST CRCL DRUG DOSING (CG) 50.38 mL/min; MAGNESIUM 2.1 mg/dL (1.8-2.4); POTASSIUM,K 4.3 mmol/L (3.5-5.1)
[2023-01-25] MEDS: guaiFENesin 100 MG/5 ML Soln 5 ML UD Cup PO SCH ×3 (08:13→20:45)
[2023-01-25] MEDS: Carvedilol 6.25 MG Tab PO SCH ×2 (08:13→17:01)
[2023-01-25] MEDS: Furosemide 40 MG Tab PO SCH (08:14)
[2023-01-25] MEDS: Insulin Glarg,Human.Rec.Analog 100 Unit/ML SUBCUT SCH ×2 (08:14→20:52)
[2023-01-25] MEDS: Omeprazole 20 MG Cap.CR PO SCH (08:14)
[2023-01-25] MEDS: Aspirin 81 MG Tab.Chew PO SCH (08:14)
[2023-01-25] MEDS: Nicotine 21 MG/24 Hr Patch TRDERM SCH ×2 (08:14→08:22)
[2023-01-25] MEDS ORDERED: Glucagon,Human Recombinant 1 MG Vial IM PRN (08:21)
[2023-01-25] MEDS ORDERED: 50% Dextrose in Water 50 ML Syringe IVPUSH PRN (08:21)
[2023-01-25] MEDS ORDERED: Dexamethasone 4 MG/ML SDV IVPUSH ONE (08:29)
[2023-01-25] MEDS ORDERED: Insulin Lispro 100 Units/ML 3 ML Vial ONE (08:54)
[2023-01-25] MEDS: Meropenem 500 MG SDV IVPUSH SCH ×3 (08:59→17:48)
[2023-01-25] MEDS ORDERED: Melatonin 3 MG Tab PO PRN (09:00)
[2023-01-25] MEDS: cefTRIAXone 1 GM Vial IVPUSH SCH (09:19)
[2023-01-25] MEDS: Saccharomyces Boulardii (Probiotic) 250 MG Cap PO SCH ×2 (09:27→20:45)
[2023-01-25] MEDS: Amiodarone 200 MG Tab PO SCH ×2 (11:32→20:45)
[2023-01-25] MEDS: Insulin Lispro 100 Units/ML 3 ML Vial SUBCUT SCH ×2 (12:10→17:02)
[2023-01-25] MEDS ORDERED: Amiodarone 150 MG/3 ML SDV ONE (17:28)
[2023-01-25] MEDS ORDERED: Amiodarone 150 MG/3 ML SDV IVPUSH ONE (17:29)
[2023-01-25] MEDS: atorvaSTATin 20 MG Tab PO SCH (20:45)
[2023-01-25] MEDS: Sodium Chloride 0.9% 10 ML Syringe FLUSH PRN (20:53)
[2023-01-25] MEDS ORDERED: Losartan 50 MG Tab PO SCH (21:00)
[2023-01-25] MEDS ORDERED: Furosemide 20 MG/2 ML VIAL IVPUSH ONE (21:08)
[2023-01-26] MEDS: Zolpidem 5 MG Tab PO PRN (02:43)
[2023-01-26] MEDS: Albuterol/Ipratropium 3.0-0.5 MG/3 ML Neb Soln NEB PRN (02:44)
[2023-01-26] MEDS: Meropenem 500 MG SDV IVPUSH SCH ×2 (02:44→09:42)
[2023-01-26 06:53] LABS: ANION GAP 10.9 mEq/L (7-13); CALCIUM 8.7 mg/dL (8.5-10.1); CREATININE 0.85 mg/dL (0.55-1.02); EST CRCL DRUG DOSING (CG) 48.01 mL/min; POTASSIUM,K 3.9 mmol/L (3.5-5.1)
[2023-01-26] MEDS: Omeprazole 20 MG Cap.CR PO SCH (08:52)
[2023-01-26] MEDS: Carvedilol 6.25 MG Tab PO SCH (08:52)
[2023-01-26] MEDS: Saccharomyces Boulardii (Probiotic) 250 MG Cap PO SCH (08:52)
[2023-01-26] MEDS: Aspirin 81 MG Tab.Chew PO SCH (08:54)
[2023-01-26] MEDS: Furosemide 40 MG Tab PO SCH (08:54)
[2023-01-26] MEDS: Amiodarone 200 MG Tab PO SCH (08:54)
[2023-01-26] MEDS: Insulin Glarg,Human.Rec.Analog 100 Unit/ML SUBCUT SCH (08:55)
[2023-01-26 09:00] VITALS: PULSE 75
[2023-01-26] MEDS: Insulin Lispro 100 Units/ML 3 ML Vial SUBCUT SCH (09:00)
[2023-01-26] MEDS: Nicotine 21 MG/24 Hr Patch TRDERM SCH (09:00)
[2023-01-26] MEDS: guaiFENesin 100 MG/5 ML Soln 5 ML UD Cup PO SCH (09:01)
[2023-01-26 09:26] VITALS: BP 154/75
[2023-01-26] MEDS: cefTRIAXone 1 GM Vial IVPUSH SCH (09:42)
[2023-01-26] MEDS ORDERED: Amiodarone 200 MG Tab PO SCH (10:45)
== END 2023-01-26 10:47 | disposition home or self-care (01) | DRG 291 ==
LOC: DL.ED 06:52 → DL.MS 10:06
PROVIDERS: ADMIT Internal Medicine; ATTEND Internal Medicine
DX: I11.0 Hypertensive heart disease with heart failure (principal); I50.23 Acute on chronic systolic (congestive) heart failure; J18.9 Pneumonia, unspecified organism; I47.20 Ventricular tachycardia, unspecified; Z68.41 Body mass index [BMI] 40.0-44.9, adult; E78.5 Hyperlipidemia, unspecified; E11.9 Type 2 diabetes mellitus without complications; E11.40 Type 2 diabetes mellitus with diabetic neuropathy, unspecified; E78.00 Pure hypercholesterolemia, unspecified; K21.9 Gastro-esophageal reflux disease without esophagitis; J45.909 Unspecified asthma, uncomplicated; E66.9 Obesity, unspecified; E11.65 Type 2 diabetes mellitus with hyperglycemia; Z79.51 Long term (current) use of inhaled steroids; F17.210 Nicotine dependence, cigarettes, uncomplicated; Z79.4 Long term (current) use of insulin; Z79.82 Long term (current) use of aspirin; Z98.49 Cataract extraction status, unspecified eye; Z90.49 Acquired absence of other specified parts of digestive tract; Z98.51 Tubal ligation status; Z98.890 Other specified postprocedural states; Z83.3 Family history of diabetes mellitus; Z88.0 Allergy status to penicillin; Z88.8 Allergy status to other drugs, medicaments and biological substances; Z79.899 Other long term (current) drug therapy
CPT/HCPCS: 36415; 71045; 80053; 81001; 82150; 83605; 83690; 83735; 83880; 84145; 84439; 84443; 84484; 85025; 85379; 85610; 85651; 85730; 86140; 93005; 96374; 99285; J1940; 80048; 82947; A9270-GY; J0282; J0696; J1100; J1170; J1815-GY; J2185; J2405; J3490; J7620-GY

== ENCOUNTER 2023-02-06 17:31 | Emergency (ER) | payer MEDICARE, MEDICAID ==
[2023-02-06 17:48] VITALS: BP 122/89; PULSE 44
== END 2023-02-06 21:04 ==
LOC: DL.ED 17:31
DX: R06.02 Shortness of breath (principal); R00.1 Bradycardia, unspecified; R09.89 Other specified symptoms and signs involving the circulatory and respiratory systems; J45.909 Unspecified asthma, uncomplicated; I10 Essential (primary) hypertension; E66.9 Obesity, unspecified; Z88.0 Allergy status to penicillin; Z88.1 Allergy status to other antibiotic agents; Z79.899 Other long term (current) drug therapy; Z79.4 Long term (current) use of insulin; Z87.891 Personal history of nicotine dependence; Z68.41 Body mass index [BMI] 40.0-44.9, adult
CPT/HCPCS: 93005; 99285

== ENCOUNTER 2023-06-05 12:58 | Emergency (ER) | payer MEDICARE, MEDICAID ==
[2023-06-05] MEDS ORDERED: Sodium Chloride 0.9% 10 ML Syringe FLUSH PRN (13:15)
[2023-06-05 13:32] VITALS: BP 167/70; PULSE 78
[2023-06-05 13:41] LABS: BASOPHILS PERCENT AUTO 0.3 % (0.0-1.0); EOSINOPHILS PERCENT AUTO 0.6 % (1.0-3.0); HEMOGLOBIN 13.9 g/dL (12.0-16.0); LYMPHOCYTES PERCENT AUTO 27.5 % (20.5-50.1); MEAN CORPUSCULAR HEMOGLOBIN 29.1 pg (27.0-34.0); MEAN CORPUSCULAR HGB CONC 33.1 g/dL (33.0-35.0); MEAN CORPUSCULAR VOLUME 88.1 fL (80-100); MONOCYTES PERCENT AUTO 5.5 % (2-8); NEUTROPHILS PERCENT AUTO 66.1 % (42.2-75.2); PLATELET COUNT,PLT 408 10^3/uL (150-450); RED BLOOD CELL COUNT 4.77 10^6/uL (4.2-5.4); WHITE BLOOD CELL COUNT,WBC 14.3 10^3/uL (5.0-10.0)
[2023-06-05 13:53] LABS: PROTHROMBIN TIME 9.8 SEC (9.0-12.0)
[2023-06-05 14:07] LABS: ALBUMIN 3.2 g/dL (3.4-5.0); ANION GAP 14.3 mEq/L (7-13); BILIRUBIN TOTAL 0.3 mg/dL (0.2-1.0); BUN/CREATININE RATIO 18.2 (No establ ref range); C-REACTIVE PROTEIN 0.41 ng/dL (<=0.30); CALCIUM 8.9 mg/dL (8.5-10.1); CREATININE 0.88 mg/dL (0.55-1.02); EST CRCL DRUG DOSING (CG) 59.15 mL/min; MAGNESIUM 1.8 mg/dL (1.8-2.4); POTASSIUM,K 4.3 mmol/L (3.5-5.1); PROTEIN TOTAL,TP 7.8 g/dL (6.4-8.2); TSH ULTRASENSITIVE 1.67 uIU/mL (0.36-3.74)
[2023-06-05 14:08] LABS: A/G RATIO 0.7
[2023-06-05] MEDS ORDERED: Iopamidol 612 MG/ML 100 ML Bottle IVPUSH ONE (14:13)
== END 2023-06-05 15:24 | disposition home or self-care (01) ==
LOC: DL.ED 12:58
DX: R07.89 Other chest pain (principal); R06.02 Shortness of breath; R42 Dizziness and giddiness; E78.00 Pure hypercholesterolemia, unspecified; J45.909 Unspecified asthma, uncomplicated; I11.0 Hypertensive heart disease with heart failure; I50.9 Heart failure, unspecified; E11.9 Type 2 diabetes mellitus without complications; Z88.8 Allergy status to other drugs, medicaments and biological substances; Z88.0 Allergy status to penicillin; Z88.1 Allergy status to other antibiotic agents; Z79.82 Long term (current) use of aspirin; Z79.899 Other long term (current) drug therapy; Z79.4 Long term (current) use of insulin
CPT/HCPCS: 36415; 71046; 71260; 74177; 80053; 82150; 83690; 83735; 83880; 84443; 84484; 85025; 85610; 86140; 93005; 93010; 99284; 99285; J3490; Q9967

== ENCOUNTER 2023-07-13 09:04 | Emergency (ER) | payer MEDICARE, MEDICAID ==
[2023-07-13] MEDS ORDERED: Sodium Chloride 0.9% 10 ML Syringe FLUSH PRN (09:15)
[2023-07-13 09:23] LABS: HEMATOCRIT 41.2 % (37.0-47.0); HEMOGLOBIN 13.3 g/dL (12.0-16.0); MEAN CORPUSCULAR HEMOGLOBIN 28.9 pg (27.0-34.0); MEAN CORPUSCULAR HGB CONC 32.3 g/dL (33.0-35.0); MEAN CORPUSCULAR VOLUME 89.4 fL (80-100); PLATELET COUNT,PLT 422 10^3/uL (150-450); RED BLOOD CELL COUNT 4.61 10^6/uL (4.2-5.4); WHITE BLOOD CELL COUNT,WBC 14.2 10^3/uL (5.0-10.0)
[2023-07-13 09:28] VITALS: BP 134/53; PULSE 79
[2023-07-13] MEDS ORDERED: Benzonatate 100 MG Cap PO ONE (09:34)
[2023-07-13] MEDS ORDERED: Albuterol/Ipratropium 3.0-0.5 MG/3 ML Neb Soln NEB ONE (09:34)
[2023-07-13 09:39] LABS: BASOPHILS PERCENT AUTO 0.3 % (0.0-1.0); EOSINOPHILS PERCENT AUTO 0.9 % (1.0-3.0); LYMPHOCYTES PERCENT AUTO 35.1 % (20.5-50.1); MONOCYTES PERCENT AUTO 5.3 % (2-8); NEUTROPHILS PERCENT AUTO 58.4 % (42.2-75.2)
[2023-07-13 09:46] LABS: LACTIC ACID 1.9 mmol/L (0.4-2.0)
[2023-07-13 09:55] LABS: ALANINE AMINOTRANSFERASE,ALT 25 U/L (14-59); ALBUMIN 3.1 g/dL (3.4-5.0); ALKALINE PHOSPHATASE 132 U/L (46-116); ANION GAP 10.6 mEq/L (7-13); ASPARTATE AMNIOTRANSFERASE,AST 9 U/L (15-37); BILIRUBIN TOTAL 0.2 mg/dL (0.2-1.0); BLOOD UREA NITROGEN,BUN 24 mg/dL (7-18); BUN/CREATININE RATIO 23.5 (No establ ref range); CALCIUM 9.3 mg/dL (8.5-10.1); CARBON DIOXIDE,CO2 28 mmol/L (21-32); CHLORIDE,CL 96 mmol/L (98-107); CREATININE 1.02 mg/dL (0.55-1.02); EST CRCL DRUG DOSING (CG) 43.05 mL/min; GLUCOSE RANDOM 300 mg/dL (70-99); POTASSIUM,K 4.6 mmol/L (3.5-5.1); SODIUM,NA 130 mmol/L (136-145)
[2023-07-13] MEDS ORDERED: Bisacodyl 10 MG Supp RECTAL ONE (09:55)
[2023-07-13] MEDS ORDERED: Lactulose Soln 10 GM/15 ML 30 ML UD Cup PO ONE (09:55)
[2023-07-13] MEDS ORDERED: cefTRIAXone 1 GM Vial IVPUSH ONE (09:57)
[2023-07-13] MEDS ORDERED: Dexamethasone 4 MG/ML SDV IVPUSH ONE (09:57)
[2023-07-13 09:58] LABS: A/G RATIO 0.63; ESTIMATED GFR 58 mL/min (>=60)
[2023-07-13 10:00] LABS: B-TYPE NATRIURETIC PEPTIDE,BNP 315 pg/ml (0-100)
[2023-07-13 10:18] LABS: CORONAVIRUS COVID-19 NAA NEGATIVE (NEGATIVE); INFLUENZA A NAA NEGATIVE (NEGATIVE); INFLUENZA B NAA NEGATIVE (NEGATIVE); RESPIRATORY SYNCYTIAL VIR NAA NEGATIVE (NEGATIVE)
[2023-07-13 10:37] LABS: BAND PERCENT MAN 1 %; BASOPHILS PERCENT MAN 1; EOSINOPHILS PERCENT MAN 1 % (1-3); LYMPHOCYTES PERCENT MAN 42 % (20-50); MONOCYTES PERCENT MAN 7 % (2-8); SEG NEUTROPHILS PERCENT MAN 48 % (42-75)
== END 2023-07-13 12:24 | disposition home or self-care (01) ==
LOC: DL.ED 09:04
DX: J44.1 Chronic obstructive pulmonary disease with (acute) exacerbation (principal); R00.1 Bradycardia, unspecified; K59.00 Constipation, unspecified; Z20.822 Contact with and (suspected) exposure to COVID-19; I10 Essential (primary) hypertension; E78.00 Pure hypercholesterolemia, unspecified; E11.9 Type 2 diabetes mellitus without complications; Z90.49 Acquired absence of other specified parts of digestive tract; Z87.891 Personal history of nicotine dependence; Z79.82 Long term (current) use of aspirin; Z79.899 Other long term (current) drug therapy; Z88.0 Allergy status to penicillin; Z88.1 Allergy status to other antibiotic agents; Z88.8 Allergy status to other drugs, medicaments and biological substances
CPT/HCPCS: 0241U; 36415; 71046; 74019; 80053; 83605; 83880; 84145; 84484; 85025; 87040; 93005; 93010; 94640; 96374; 96375; 99284; 99285-25; A9270-GY; J0696; J1100; J3490; J7620-GY

== ENCOUNTER 2023-10-06 09:29 | Emergency (ER) | payer MEDICARE, MEDICAID ==
[2023-10-06 09:38] LABS: O2 DELIVERY DEVICE ROOM AIR
[2023-10-06 09:41] LABS: BASOPHILS PERCENT AUTO 0.4 % (0.0-1.0); EOSINOPHILS PERCENT AUTO 0.5 % (1.0-3.0); HEMATOCRIT 45.2 % (37.0-47.0); HEMOGLOBIN 14.4 g/dL (12.0-16.0); LYMPHOCYTES PERCENT AUTO 13.3 % (20.5-50.1); MEAN CORPUSCULAR HEMOGLOBIN 27.8 pg (27.0-34.0); MEAN CORPUSCULAR HGB CONC 31.9 g/dL (33.0-35.0); MEAN CORPUSCULAR VOLUME 87.3 fL (80-100); MONOCYTES PERCENT AUTO 7.4 % (2-8); NEUTROPHILS PERCENT AUTO 78.4 % (42.2-75.2); PLATELET COUNT,PLT 404 10^3/uL (150-450); RED BLOOD CELL COUNT 5.18 10^6/uL (4.2-5.4); WHITE BLOOD CELL COUNT,WBC 10.2 10^3/uL (5.0-10.0)
[2023-10-06 09:58] LABS: BILIRUBIN,URINE NEGATIVE (NEGATIVE); COLOR,URINE YELLOW (YELLOW); GLUCOSE,URINE 500 (NEGATIVE); KETONES,URINE NEGATIVE (NEGATIVE); LEUKOCYTE ESTERASE,URINE SMALL (NEGATIVE); NITRITE,URINE NEGATIVE (NEGATIVE); OCCULT BLOOD,URINE NEGATIVE (NEGATIVE); PROTEIN,URINE NEGATIVE (NEGATIVE); UROBILINOGEN,URINE 0.2 mg/dL (0.2-1.0)
[2023-10-06 09:59] LABS: BASE EXCESS VENOUS 3.2 mmol/l ((-2)-(+3)); BICARBONATE,VENOUS 29 mmol/l (19-25); PCO2 VENOUS 53 mmHg (41-51); PH,VENOUS 7.36 (7.31-7.41); PO2 VENOUS 28 mmHg (35-42)
[2023-10-06 10:03] LABS: ALKALINE PHOSPHATASE 106 U/L (46-116); ASPARTATE AMNIOTRANSFERASE,AST 10 U/L (15-37); BILIRUBIN TOTAL 0.3 mg/dL (0.2-1.0); BLOOD UREA NITROGEN,BUN 16 mg/dL (7-18); POTASSIUM,K 4.2 mmol/L (3.5-5.1); PROTEIN TOTAL,TP 8.2 g/dL (6.4-8.2); SODIUM,NA 137 mmol/L (136-145)
[2023-10-06 10:04] LABS: A/G RATIO 0.7; ALANINE AMINOTRANSFERASE,ALT 19 U/L (14-59); ALBUMIN 3.5 g/dL (3.4-5.0); ANION GAP 14.2 mEq/L (7-13); BUN/CREATININE RATIO 15.7 (No establ ref range); CALCIUM 9.3 mg/dL (8.5-10.1); CARBON DIOXIDE,CO2 28 mmol/L (21-32); CHLORIDE,CL 99 mmol/L (98-107); CREATININE 1.02 mg/dL (0.55-1.02); GLUCOSE RANDOM 218 mg/dL (70-99)
[2023-10-06 10:05] LABS: APPEARANCE,URINE SLIGHTLY CLOUDY (CLEAR)
[2023-10-06 10:07] LABS: B-TYPE NATRIURETIC PEPTIDE,BNP 37 pg/ml (0-100)
[2023-10-06 10:10] LABS: BACTERIA,URINE MANY /HPF (0-FEW/HPF); EPITHELIAL CELLS,URINE RARE /HPF (NOT SEEN); RBC,URINE 0-5 /HPF (0-5)
[2023-10-06 10:17] LABS: ESTIMATED GFR 58 mL/min (>=60)
[2023-10-06 10:24] LABS: KETONES,BLOOD NEGATIVE
[2023-10-06 10:29] LABS: INFLUENZA A NAA NEGATIVE (NEGATIVE); INFLUENZA B NAA NEGATIVE (NEGATIVE); RESPIRATORY SYNCYTIAL VIR NAA NEGATIVE (NEGATIVE)
[2023-10-06 10:32] LABS: CORONAVIRUS COVID-19 NAA POSITIVE (NEGATIVE)
[2023-10-06 11:50] VITALS: BP 138/82; PULSE 92
== END 2023-10-06 11:57 | disposition home or self-care (01) ==
LOC: DL.ED 09:29
DX: U07.1 COVID-19 (principal)
CPT/HCPCS: 0241U; 36415; 71046; 80053; 81001; 82009; 82803; 83735; 83880; 85025; 87086; 93005; 93010; 99284; 99285; 87088; 87186

== ENCOUNTER 2024-01-30 10:55 | Emergency (ER) | payer MEDICARE, MEDICAID ==
[2024-01-30 17:49] VITALS: PULSE 77
== END 2024-01-30 19:00 | disposition left against medical advice (07) ==
LOC: DL.ED 10:55
DX: Z53.21 Procedure and treatment not carried out due to patient leaving prior to being seen by health care provider (principal)

== ENCOUNTER 2024-04-23 16:21 | Emergency (ER) | payer MEDICARE, MEDICAID ==
[2024-04-23 16:47] VITALS: PULSE 74
[2024-04-23 17:39] LABS: BASOPHILS PERCENT AUTO 0.3 % (0.0-1.0); HEMOGLOBIN 13.6 g/dL (12.0-16.0); MEAN CORPUSCULAR HEMOGLOBIN 27.4 pg (27.0-34.0); MEAN CORPUSCULAR HGB CONC 31.6 g/dL (33.0-35.0); MEAN CORPUSCULAR VOLUME 86.7 fL (80-100); MONOCYTES PERCENT AUTO 4.8 % (2-8); NEUTROPHILS PERCENT AUTO 63.9 % (42.2-75.2); PLATELET COUNT,PLT 323 10^3/uL (150-450); RED BLOOD CELL COUNT 4.96 10^6/uL (4.2-5.4); WHITE BLOOD CELL COUNT,WBC 12.8 10^3/uL (5.0-10.0)
[2024-04-23] MEDS: Iopamidol 612 MG/ML 100 ML Bottle IVPUSH ONE (17:39)
[2024-04-23 18:07] VITALS: BP 165/87
[2024-04-23 18:13] LABS: ALANINE AMINOTRANSFERASE,ALT 19 U/L (14-59); ALBUMIN 3.3 g/dL (3.4-5.0); ALKALINE PHOSPHATASE 126 U/L (46-116); ANION GAP 9.9 mEq/L (7-13); ASPARTATE AMNIOTRANSFERASE,AST 9 U/L (15-37); BILIRUBIN TOTAL 0.2 mg/dL (0.2-1.0); BLOOD UREA NITROGEN,BUN 12 mg/dL (7-18); BUN/CREATININE RATIO 11.1 (No establ ref range); CALCIUM 9.3 mg/dL (8.5-10.1); CARBON DIOXIDE,CO2 31 mmol/L (21-32); CHLORIDE,CL 101 mmol/L (98-107); CREATININE 1.08 mg/dL (0.55-1.02); GLUCOSE RANDOM 121 mg/dL (70-99); MAGNESIUM 1.9 mg/dL (1.8-2.4); POTASSIUM,K 3.9 mmol/L (3.5-5.1); PROTEIN TOTAL,TP 7.8 g/dL (6.4-8.2); SODIUM,NA 138 mmol/L (136-145); TSH ULTRASENSITIVE 0.84 uIU/mL (0.36-3.74)
[2024-04-23 18:16] LABS: A/G RATIO 0.73; ESTIMATED GFR 55 mL/min (>=60)
[2024-04-23] MEDS: Take Home: Doxycycline 100 MG Cap, 4 Cap Pack PO ONE (20:20)
== END 2024-04-23 20:25 | disposition home or self-care (01) ==
LOC: DL.ED 16:21
DX: R51.9 Headache, unspecified (principal); E78.00 Pure hypercholesterolemia, unspecified; J45.909 Unspecified asthma, uncomplicated; I10 Essential (primary) hypertension; E11.9 Type 2 diabetes mellitus without complications; Z90.49 Acquired absence of other specified parts of digestive tract; Z79.82 Long term (current) use of aspirin; Z79.4 Long term (current) use of insulin; Z79.899 Other long term (current) drug therapy; Z88.1 Allergy status to other antibiotic agents; Z88.8 Allergy status to other drugs, medicaments and biological substances
CPT/HCPCS: 36415; 70487; 80053; 83735; 84443; 85025; 99283; 99284; A9270-GY; Q9967

== ENCOUNTER 2024-04-27 09:33 | Emergency (ER) | payer MEDICARE, MEDICAID ==
[2024-04-27] MEDS ORDERED: Sodium Chloride 0.9% 10 ML Syringe FLUSH PRN (09:53)
[2024-04-27 10:11] LABS: BASOPHILS PERCENT AUTO 0.3 % (0.0-1.0); EOSINOPHILS PERCENT AUTO 0.8 % (1.0-3.0); HEMATOCRIT 39.4 % (37.0-47.0); HEMOGLOBIN 12.6 g/dL (12.0-16.0); LYMPHOCYTES PERCENT AUTO 33.6 % (20.5-50.1); MEAN CORPUSCULAR HEMOGLOBIN 27.6 pg (27.0-34.0); MEAN CORPUSCULAR VOLUME 86.4 fL (80-100); MONOCYTES PERCENT AUTO 5.9 % (2-8); NEUTROPHILS PERCENT AUTO 59.4 % (42.2-75.2); PLATELET COUNT,PLT 305 10^3/uL (150-450); RED BLOOD CELL COUNT 4.56 10^6/uL (4.2-5.4); WHITE BLOOD CELL COUNT,WBC 12.6 10^3/uL (5.0-10.0)
[2024-04-27] MEDS: Ondansetron 4 MG/2 ML SDV IVPUSH ONE (10:11)
[2024-04-27] MEDS: fentaNYL 100 MCG/2 ML SDV IVPUSH ONE (10:11)
[2024-04-27 10:31] LABS: PROTHROMBIN TIME 10.4 SEC (9.0-12.0)
[2024-04-27 10:33] LABS: ALBUMIN 3.3 g/dL (3.4-5.0); ANION GAP 10.2 mEq/L (7-13); BILIRUBIN TOTAL 0.3 mg/dL (0.2-1.0); BUN/CREATININE RATIO 21.2 (No establ ref range); CALCIUM 9.1 mg/dL (8.5-10.1); CREATININE 0.99 mg/dL (0.55-1.02); EST CRCL DRUG DOSING (CG) 44.35 mL/min; MAGNESIUM 1.8 mg/dL (1.8-2.4); POTASSIUM,K 4.2 mmol/L (3.5-5.1); PROTEIN TOTAL,TP 7.3 g/dL (6.4-8.2)
[2024-04-27 10:34] LABS: A/G RATIO 0.83
[2024-04-27] MEDS: Albuterol/Ipratropium 3.0-0.5 MG/3 ML Neb Soln NEB ONE (10:34)
[2024-04-27] MEDS: GI Cocktail Oral Solution 30 ML PO ONE (10:40)
[2024-04-27 10:54] LABS: APPEARANCE,URINE CLEAR (CLEAR); BILIRUBIN,URINE NEGATIVE (NEGATIVE); COLOR,URINE YELLOW (YELLOW); GLUCOSE,URINE NEGATIVE (NEGATIVE); KETONES,URINE NEGATIVE (NEGATIVE); LEUKOCYTE ESTERASE,URINE NEGATIVE (NEGATIVE); NITRITE,URINE NEGATIVE (NEGATIVE); OCCULT BLOOD,URINE NEGATIVE (NEGATIVE); PH,URINE 5.5 (5.0-9.0); PROTEIN,URINE NEGATIVE (NEGATIVE); UROBILINOGEN,URINE 0.2 mg/dL (0.2-1.0)
[2024-04-27 11:08] VITALS: BP 117/53; PULSE 48
[2024-04-27] MEDS ORDERED: Sodium Chloride 0.9% 500 ML IV ONE (11:31)
== END 2024-04-27 12:14 | disposition home or self-care (01) ==
LOC: DL.ED 09:33
DX: J45.41 Moderate persistent asthma with (acute) exacerbation (principal); K21.9 Gastro-esophageal reflux disease without esophagitis; I10 Essential (primary) hypertension; E78.00 Pure hypercholesterolemia, unspecified; E11.9 Type 2 diabetes mellitus without complications; E66.9 Obesity, unspecified; Z90.49 Acquired absence of other specified parts of digestive tract; Z79.82 Long term (current) use of aspirin; Z79.4 Long term (current) use of insulin; Z79.899 Other long term (current) drug therapy; Z88.0 Allergy status to penicillin; Z88.8 Allergy status to other drugs, medicaments and biological substances; Z88.1 Allergy status to other antibiotic agents; Z68.38 Body mass index [BMI] 38.0-38.9, adult
CPT/HCPCS: 36415; 71046; 80053; 81003; 82272; 83690; 83735; 83880; 84484; 85025; 85610; 93005; 93010; 96374; 96375; 99284; 99285-25; A9270-GY; J2405; J3010; J7620-GY

== ENCOUNTER 2024-05-16 17:03 | Emergency (ER) | payer MEDICARE, MEDICAID ==
[2024-05-16 17:23] VITALS: BP 128/47; PULSE 69
[2024-05-16] MEDS: Lidocaine 1% with EPINEPHrine 1:100,000 20 ML MDV INJECT ONE (18:01)
== END 2024-05-16 18:50 | disposition home or self-care (01) ==
LOC: DL.ED 17:03
DX: L02.31 Cutaneous abscess of buttock (principal); E78.00 Pure hypercholesterolemia, unspecified; I10 Essential (primary) hypertension; J45.909 Unspecified asthma, uncomplicated; E11.9 Type 2 diabetes mellitus without complications; Z90.49 Acquired absence of other specified parts of digestive tract; Z79.82 Long term (current) use of aspirin; Z79.4 Long term (current) use of insulin; Z88.0 Allergy status to penicillin; Z88.1 Allergy status to other antibiotic agents; Z88.9 Allergy status to unspecified drugs, medicaments and biological substances; Z88.8 Allergy status to other drugs, medicaments and biological substances; Z79.899 Other long term (current) drug therapy
CPT/HCPCS: 10160; 99283-25; J3490

== ENCOUNTER 2024-07-29 15:59 | Emergency (ER) | payer MEDICARE, MEDICAID, OTHER ==
[2024-07-29 16:16] VITALS: BP 155/70; PULSE 80
[2024-07-29] MEDS ORDERED: Glucagon,Human Recombinant 1 MG Vial IM PRN ×2 (16:39→16:58)
[2024-07-29] MEDS ORDERED: 50% Dextrose in Water 50 ML Syringe IVPUSH PRN ×2 (16:39→16:58)
[2024-07-29] MEDS ORDERED: Insulin NPH HUM/REG Insulin HM 100 UNIT/ML 3 ML Vial SQ ONE (16:39)
[2024-07-29 16:54] LABS: APPEARANCE,URINE SLIGHTLY CLOUDY (CLEAR); BILIRUBIN,URINE NEGATIVE (NEGATIVE); COLOR,URINE YELLOW (YELLOW); GLUCOSE,URINE 500 (NEGATIVE); KETONES,URINE NEGATIVE (NEGATIVE); LEUKOCYTE ESTERASE,URINE TRACE (NEGATIVE); NITRITE,URINE NEGATIVE (NEGATIVE); OCCULT BLOOD,URINE TRACE-INTACT (NEGATIVE); PROTEIN,URINE 100 (NEGATIVE); UROBILINOGEN,URINE 0.2 mg/dL (0.2-1.0)
[2024-07-29 17:03] LABS: BASOPHILS PERCENT AUTO 0.4 % (0.0-1.0); EOSINOPHILS PERCENT AUTO 1.2 % (1.0-3.0); HEMATOCRIT 43.2 % (37.0-47.0); HEMOGLOBIN 13.9 g/dL (12.0-16.0); LYMPHOCYTES PERCENT AUTO 32.7 % (20.5-50.1); MEAN CORPUSCULAR HEMOGLOBIN 28.1 pg (27.0-34.0); MEAN CORPUSCULAR HGB CONC 32.2 g/dL (33.0-35.0); MEAN CORPUSCULAR VOLUME 87.3 fL (80-100); MONOCYTES PERCENT AUTO 5.2 % (2-8); NEUTROPHILS PERCENT AUTO 60.5 % (42.2-75.2); PLATELET COUNT,PLT 351 10^3/uL (150-450); RED BLOOD CELL COUNT 4.95 10^6/uL (4.2-5.4); WHITE BLOOD CELL COUNT,WBC 11.4 10^3/uL (5.0-10.0)
[2024-07-29 17:05] LABS: AMORPHOUS SEDIMENT,URINE FEW /HPF (NOT SEEN); BACTERIA,URINE MANY /HPF (0-FEW/HPF); EPITHELIAL CELLS,URINE FEW /HPF (NOT SEEN); MUCUS,URINE FEW /LPF (NOT SEEN); RBC,URINE 0-5 /HPF (0-5); WBC,URINE 40-50 /HPF (0-5/HPF)
[2024-07-29 17:26] LABS: A/G RATIO 0.7; ALBUMIN 3.4 g/dL (3.4-5.0); ANION GAP 10.3 mEq/L (7-13); BILIRUBIN TOTAL 0.3 mg/dL (0.2-1.0); BUN/CREATININE RATIO 16.7 (No establ ref range); CALCIUM 9.1 mg/dL (8.5-10.1); CREATININE 0.9 mg/dL (0.55-1.02); EST CRCL DRUG DOSING (CG) 48.07 mL/min; MAGNESIUM 1.9 mg/dL (1.8-2.4); POTASSIUM,K 4.3 mmol/L (3.5-5.1)
[2024-07-29] MEDS: Insulin Regular, Human 100 Units/ML 3 ML Vial SUBCUT ONE (17:38)
[2024-07-29] MEDS: Nitrofurantoin Monohydrate/Macrocrystalline 100 MG Cap PO ONE (17:39)
[2024-07-29] MEDS: Insulin Regular, Human 100 Units/ML 10 ML Vial ONE (17:45)
[2024-07-29] MEDS: Iopamidol 612 MG/ML 100 ML Bottle IVPUSH ONE (18:01)
[2024-07-29] MEDS: Iopamidol 755 Mg/ML 100 ML Bottle IV ONE (18:01)
== END 2024-07-29 18:36 | disposition home or self-care (01) ==
LOC: DL.ED 15:59
DX: E11.65 Type 2 diabetes mellitus with hyperglycemia (principal); N39.0 Urinary tract infection, site not specified; I10 Essential (primary) hypertension; E78.00 Pure hypercholesterolemia, unspecified; J45.909 Unspecified asthma, uncomplicated; Z90.49 Acquired absence of other specified parts of digestive tract; Z88.0 Allergy status to penicillin; Z88.8 Allergy status to other drugs, medicaments and biological substances; Z79.4 Long term (current) use of insulin; Z79.82 Long term (current) use of aspirin; Z79.51 Long term (current) use of inhaled steroids; Z79.899 Other long term (current) drug therapy
CPT/HCPCS: 80053; 81001; 82947; 83735; 85025; 87086; 87088; 87186; 87428; 99284; A9270; J1815

== ENCOUNTER 2024-08-15 18:15 | Emergency (ER) | payer MEDICARE, MEDICAID, OTHER ==
[2024-08-15 18:30] VITALS: BP 127/64; PULSE 72
[2024-08-15] MEDS ORDERED: Sodium Chloride 0.9% 10 ML Syringe FLUSH PRN (18:34)
[2024-08-15 18:55] LABS: BASOPHILS PERCENT AUTO 0.2 % (0.0-1.0); EOSINOPHILS PERCENT AUTO 0.2 % (1.0-3.0); HEMOGLOBIN 14.1 g/dL (12.0-16.0); LYMPHOCYTES PERCENT AUTO 9.9 % (20.5-50.1); MEAN CORPUSCULAR HEMOGLOBIN 28.4 pg (27.0-34.0); MEAN CORPUSCULAR VOLUME 88.5 fL (80-100); MONOCYTES PERCENT AUTO 3.2 % (2-8); NEUTROPHILS PERCENT AUTO 86.5 % (42.2-75.2); PLATELET COUNT,PLT 339 10^3/uL (150-450); RED BLOOD CELL COUNT 4.97 10^6/uL (4.2-5.4); WHITE BLOOD CELL COUNT,WBC 12.3 10^3/uL (5.0-10.0)
[2024-08-15 19:15] LABS: PROTHROMBIN TIME 10.8 SEC (9.0-12.0); PTT,PARTIAL THROMBOPLSTIN TIME 25.9 SEC (22.0-34.0)
[2024-08-15 19:18] LABS: A/G RATIO 0.8; ALANINE AMINOTRANSFERASE,ALT 22 U/L (14-59); ALBUMIN 3.4 g/dL (3.4-5.0); ALKALINE PHOSPHATASE 117 U/L (46-116); ANION GAP 14.4 mEq/L (7-13); ASPARTATE AMNIOTRANSFERASE,AST 14 U/L (15-37); BILIRUBIN TOTAL 0.4 mg/dL (0.2-1.0); BLOOD UREA NITROGEN,BUN 20 mg/dL (7-18); C-REACTIVE PROTEIN 1.01 ng/dL (<=0.50); CALCIUM 9.1 mg/dL (8.5-10.1); CARBON DIOXIDE,CO2 26 mmol/L (21-32); CHLORIDE,CL 99 mmol/L (98-107); CREATININE 1.43 mg/dL (0.55-1.02); ESTIMATED GFR 39 mL/min (>=60); GLUCOSE RANDOM 284 mg/dL (70-99); MAGNESIUM 1.8 mg/dL (1.8-2.4); POTASSIUM,K 4.4 mmol/L (3.5-5.1); PROTEIN TOTAL,TP 7.9 g/dL (6.4-8.2); SODIUM,NA 135 mmol/L (136-145)
[2024-08-15 19:21] LABS: LACTIC ACID 1.7 mmol/L (0.4-2.0)
[2024-08-15] MEDS: HYDROmorphone 1 MG/ML Syringe IVPUSH ONE (19:49)
[2024-08-15] MEDS: Iopamidol 612 MG/ML 100 ML Bottle IVPUSH ONE (20:11)
[2024-08-15] MEDS: Sodium Chloride 0.9% 1,000 ML IV ONE (21:23)
[2024-08-15] MEDS: Loperamide 2 MG Cap PO ONE (22:01)
[2024-08-15] MEDS: Take Home: Ondansetron 4 MG Tab.DIS, 5 Tab Pack PO ONE (22:03)
[2024-08-15] MEDS: Take Home: traMADol 50 MG, 4 Tab Pack PO ONE (22:04)
== END 2024-08-15 22:14 | disposition home or self-care (01) ==
LOC: DL.ED 18:15
DX: K52.9 Noninfective gastroenteritis and colitis, unspecified (principal); I10 Essential (primary) hypertension; E78.00 Pure hypercholesterolemia, unspecified; E11.9 Type 2 diabetes mellitus without complications; R06.02 Shortness of breath; Z90.49 Acquired absence of other specified parts of digestive tract; Z79.899 Other long term (current) drug therapy; Z79.4 Long term (current) use of insulin; Z79.51 Long term (current) use of inhaled steroids; Z88.8 Allergy status to other drugs, medicaments and biological substances; Z88.0 Allergy status to penicillin; Z88.1 Allergy status to other antibiotic agents
CPT/HCPCS: 36415; 74177; 80053; 83605; 83735; 83880; 85025; 85610; 85730; 86140; 96361; 96374; 99283; 99285; A9270; J1171; J7030; Q0162; Q9967

== ENCOUNTER 2024-09-12 05:21 | Day surgery (SDC) | payer MEDICARE, MEDICAID ==
[2024-09-12] MEDS: Dextrose 5%-0.45% NaCl 1,000 ML IV SCH (06:00)
[2024-09-12] MEDS ORDERED: Midazolam 1 MG/ML 2 ML SDV ONE (06:04)
[2024-09-12] MEDS ORDERED: fentaNYL 100 MCG/2 ML SDV ONE (06:05)
[2024-09-12] MEDS ORDERED: Midazolam 1 MG/ML 2 ML SDV IV ONE (06:05)
[2024-09-12] MEDS ORDERED: fentaNYL 100 MCG/2 ML SDV IV ONE (06:05)
[2024-09-12] MEDS: fentaNYL 100 MCG/2 ML SDV IV ONE ×2 (07:12)
[2024-09-12] MEDS: Midazolam 1 MG/ML 2 ML SDV IV ONE ×2 (07:13)
[2024-09-12 08:53] VITALS: BP 136/61; PULSE 78
== END 2024-09-12 09:15 | disposition home or self-care (01) ==
LOC: DL.ENDO 05:21
PROVIDERS: ATTEND Internal Medicine Gastroenterology
DX: K29.50 Unspecified chronic gastritis without bleeding (principal); K31.A11 Gastric intestinal metaplasia without dysplasia, involving the antrum; K29.80 Duodenitis without bleeding
CPT/HCPCS: 88305; J2250; J3010; J7799

== ENCOUNTER 2024-09-13 05:20 | Day surgery (SDC) | payer MEDICARE, MEDICAID ==
[2024-09-13] MEDS ORDERED: Midazolam 1 MG/ML 2 ML SDV ONE (05:36)
[2024-09-13] MEDS ORDERED: fentaNYL 100 MCG/2 ML SDV IV ONE (05:36)
[2024-09-13] MEDS ORDERED: fentaNYL 100 MCG/2 ML SDV ONE (05:36)
[2024-09-13] MEDS ORDERED: Midazolam 1 MG/ML 2 ML SDV IV ONE (05:36)
[2024-09-13] MEDS: Dextrose 5%-0.45% NaCl 1,000 ML IV SCH (05:52)
[2024-09-13] MEDS: fentaNYL 100 MCG/2 ML SDV IV ONE ×2 (06:19)
[2024-09-13] MEDS: Midazolam 1 MG/ML 2 ML SDV IV ONE ×3 (06:20→06:22)
[2024-09-13 07:11] VITALS: BP 152/50; PULSE 75
== END 2024-09-13 07:40 | disposition home or self-care (01) ==
LOC: DL.ENDO 05:20
PROVIDERS: ATTEND Internal Medicine Gastroenterology
DX: K57.30 Diverticulosis of large intestine without perforation or abscess without bleeding (principal)
CPT/HCPCS: J2250; J3010; J7799

== ENCOUNTER 2024-10-09 10:40 | Emergency (ER) | payer MEDICARE, MEDICAID, OTHER ==
[2024-10-09] MEDS ORDERED: Sodium Chloride 0.9% 10 ML Syringe FLUSH PRN (11:03)
[2024-10-09 11:28] LABS: BASOPHILS PERCENT AUTO 0.3 % (0.0-1.0); EOSINOPHILS PERCENT AUTO 0.6 % (1.0-3.0); HEMATOCRIT 41.9 % (37.0-47.0); HEMOGLOBIN 13.1 g/dL (12.0-16.0); LYMPHOCYTES PERCENT AUTO 27.1 % (20.5-50.1); MEAN CORPUSCULAR HEMOGLOBIN 27.6 pg (27.0-34.0); MEAN CORPUSCULAR HGB CONC 31.3 g/dL (33.0-35.0); MEAN CORPUSCULAR VOLUME 88.4 fL (80-100); MONOCYTES PERCENT AUTO 5.7 % (2-8); NEUTROPHILS PERCENT AUTO 66.3 % (42.2-75.2); PLATELET COUNT,PLT 353 10^3/uL (150-450); RED BLOOD CELL COUNT 4.74 10^6/uL (4.2-5.4); WHITE BLOOD CELL COUNT,WBC 14.7 10^3/uL (5.0-10.0)
[2024-10-09 11:32] LABS: BASE EXCESS VENOUS 2.3 mmol/l ((-2)-(+3)); BICARBONATE,VENOUS 28 mmol/l (19-25); O2 DELIVERY DEVICE ROOM AIR; O2 SATURATION VENOUS 53.2 % (60-80); PCO2 VENOUS 52 mmHg (41-51); PH,VENOUS 7.36 (7.31-7.41); PO2 VENOUS 37 mmHg (35-42)
[2024-10-09 11:47] LABS: PROTHROMBIN TIME 10.1 SEC (9.0-12.0); PTT,PARTIAL THROMBOPLSTIN TIME 24.3 SEC (22.0-34.0)
[2024-10-09 11:52] LABS: ALBUMIN 3.1 g/dL (3.4-5.0); BILIRUBIN TOTAL 0.2 mg/dL (0.2-1.0); BUN/CREATININE RATIO 14.3 (No establ ref range); CALCIUM 9.1 mg/dL (8.5-10.1); CREATININE 1.26 mg/dL (0.55-1.02); EST CRCL DRUG DOSING (CG) 34.34 mL/min; PROTEIN TOTAL,TP 7.6 g/dL (6.4-8.2)
[2024-10-09 11:56] LABS: ANION GAP 13.5 mEq/L (7-13); POTASSIUM,K 4.5 mmol/L (3.5-5.1)
[2024-10-09 11:57] LABS: A/G RATIO 0.69
[2024-10-09] MEDS: Albuterol/Ipratropium 3.0-0.5 MG/3 ML Neb Soln NEB ONE (13:14)
[2024-10-09] MEDS: Cefuroxime 250 MG Tab PO ONE (13:18)
[2024-10-09] MEDS: Albuterol/Ipratropium 3.0-0.5 MG/3 ML Neb Soln ONE (13:19)
[2024-10-09 19:31] VITALS: BP 136/61; PULSE 52
== END 2024-10-09 14:44 | disposition home or self-care (01) ==
LOC: DL.ED 10:40
DX: J20.6 Acute bronchitis due to rhinovirus (principal); H65.01 Acute serous otitis media, right ear; I10 Essential (primary) hypertension; E11.9 Type 2 diabetes mellitus without complications; E78.00 Pure hypercholesterolemia, unspecified; E66.9 Obesity, unspecified; Z88.1 Allergy status to other antibiotic agents; J45.909 Unspecified asthma, uncomplicated; Z79.899 Other long term (current) drug therapy; Z88.8 Allergy status to other drugs, medicaments and biological substances; Z79.52 Long term (current) use of systemic steroids; Z79.4 Long term (current) use of insulin; Z90.49 Acquired absence of other specified parts of digestive tract; Z68.41 Body mass index [BMI] 40.0-44.9, adult
CPT/HCPCS: 36415; 71045; 80053; 82803; 83880; 84484; 85025; 85610; 85730; 87428; 93005; 93010; 99284; 99285; A9270; J7620-GY

== ENCOUNTER 2024-11-25 22:12 | Emergency (ER) | payer MEDICARE, MEDICAID, OTHER | END 2024-11-25 22:53 | disposition left against medical advice (07) | LOC: DL.ED 22:12 | DX: Z53.21 Procedure and treatment not carried out due to patient leaving prior to being seen by health care provider (principal) ==

== ENCOUNTER 2024-11-26 12:14 | Emergency (ER) | payer MEDICARE, MEDICAID, OTHER ==
[2024-11-26 12:39] LABS: BASOPHILS PERCENT AUTO 0.4 % (0.0-1.0); EOSINOPHILS PERCENT AUTO 0.5 % (1.0-3.0); HEMATOCRIT 42.1 % (37.0-47.0); HEMOGLOBIN 13.4 g/dL (12.0-16.0); LYMPHOCYTES PERCENT AUTO 35.1 % (20.5-50.1); MEAN CORPUSCULAR HEMOGLOBIN 27.3 pg (27.0-34.0); MEAN CORPUSCULAR HGB CONC 31.8 g/dL (33.0-35.0); MEAN CORPUSCULAR VOLUME 85.7 fL (80-100); MONOCYTES PERCENT AUTO 5.4 % (2-8); NEUTROPHILS PERCENT AUTO 58.6 % (42.2-75.2); PLATELET COUNT,PLT 343 10^3/uL (150-450); RED BLOOD CELL COUNT 4.91 10^6/uL (4.2-5.4)
[2024-11-26 13:02] LABS: ALANINE AMINOTRANSFERASE,ALT 18 U/L (14-59); ALBUMIN 3.3 g/dL (3.4-5.0); ALKALINE PHOSPHATASE 122 U/L (46-116); ASPARTATE AMNIOTRANSFERASE,AST 10 U/L (15-37); BILIRUBIN TOTAL 0.2 mg/dL (0.2-1.0); BLOOD UREA NITROGEN,BUN 23 mg/dL (7-18); BUN/CREATININE RATIO 20.2 (No establ ref range); CALCIUM 9.7 mg/dL (8.5-10.1); CARBON DIOXIDE,CO2 29 mmol/L (21-32); CHLORIDE,CL 103 mmol/L (98-107); CREATININE 1.14 mg/dL (0.55-1.02); GLUCOSE RANDOM 127 mg/dL (70-99); MAGNESIUM 2.1 mg/dL (1.8-2.4); PROTEIN TOTAL,TP 7.9 g/dL (6.4-8.2); SODIUM,NA 140 mmol/L (136-145)
[2024-11-26 13:06] LABS: A/G RATIO 0.72; C-REACTIVE PROTEIN < 0.50 ng/dL (<=0.50); ESTIMATED GFR 51 mL/min (>=60)
[2024-11-26 13:13] LABS: B-TYPE NATRIURETIC PEPTIDE,BNP 516 pg/ml (0-100)
[2024-11-26 13:40] VITALS: BP 120/63; PULSE 46
== END 2024-11-26 13:45 | disposition home or self-care (01) ==
LOC: DL.ED 12:14
DX: R00.1 Bradycardia, unspecified (principal); I10 Essential (primary) hypertension; E78.00 Pure hypercholesterolemia, unspecified; E11.9 Type 2 diabetes mellitus without complications; E66.9 Obesity, unspecified; J45.909 Unspecified asthma, uncomplicated; Z88.1 Allergy status to other antibiotic agents; Z88.8 Allergy status to other drugs, medicaments and biological substances; Z79.899 Other long term (current) drug therapy; Z79.4 Long term (current) use of insulin; Z79.02 Long term (current) use of antithrombotics/antiplatelets
CPT/HCPCS: 36415; 71046; 80053; 83735; 83880; 84484; 85025; 86140; 93005; 93010; 99284; 99285

== ENCOUNTER 2024-12-11 18:15 | Emergency (ER) | payer MEDICARE, MEDICAID, OTHER ==
[2024-12-11 18:29] VITALS: BP 143/43; PULSE 54
== END 2024-12-11 18:30 | disposition left against medical advice (07) ==
LOC: DL.ED 18:15
DX: R06.02 Shortness of breath (principal); I10 Essential (primary) hypertension; E11.9 Type 2 diabetes mellitus without complications; J45.909 Unspecified asthma, uncomplicated; E78.00 Pure hypercholesterolemia, unspecified; Z88.0 Allergy status to penicillin; Z88.1 Allergy status to other antibiotic agents; Z88.8 Allergy status to other drugs, medicaments and biological substances; Z79.51 Long term (current) use of inhaled steroids; Z79.899 Other long term (current) drug therapy; Z79.4 Long term (current) use of insulin; Z86.73 Personal history of transient ischemic attack (TIA), and cerebral infarction without residual deficits
CPT/HCPCS: 99283

== ENCOUNTER 2025-02-10 12:28 | Emergency (ER) | payer MEDICARE, MEDICAID, OTHER ==
[2025-02-10] MEDS: Take Home: traMADol 50 MG, 4 Tab Pack PO ONE (14:17)
[2025-02-10 15:52] VITALS: BP 144/80; PULSE 68
== END 2025-02-10 14:23 | disposition home or self-care (01) ==
LOC: DL.ED 12:28
DX: M25.541 Pain in joints of right hand (principal); I10 Essential (primary) hypertension; E78.00 Pure hypercholesterolemia, unspecified; E66.9 Obesity, unspecified; E11.9 Type 2 diabetes mellitus without complications; J45.909 Unspecified asthma, uncomplicated; Z88.1 Allergy status to other antibiotic agents; Z88.8 Allergy status to other drugs, medicaments and biological substances; Z79.899 Other long term (current) drug therapy; Z79.51 Long term (current) use of inhaled steroids; Z79.4 Long term (current) use of insulin; Z79.02 Long term (current) use of antithrombotics/antiplatelets; Z90.49 Acquired absence of other specified parts of digestive tract; Z68.41 Body mass index [BMI] 40.0-44.9, adult
CPT/HCPCS: 73110; 73130; 99283; A9270

== ENCOUNTER 2025-05-06 09:23 | Emergency (ER) | payer MEDICARE, MEDICAID ==
[2025-05-06 09:37] VITALS: BP 150/59; PULSE 78
== END 2025-05-06 10:25 | disposition home or self-care (01) ==
LOC: DL.ED 09:23
DX: S05.01XA Injury of conjunctiva and corneal abrasion without foreign body, right eye, initial encounter (principal); E78.00 Pure hypercholesterolemia, unspecified; I10 Essential (primary) hypertension; E11.9 Type 2 diabetes mellitus without complications; J45.909 Unspecified asthma, uncomplicated; Z90.49 Acquired absence of other specified parts of digestive tract; Z88.0 Allergy status to penicillin; Z86.73 Personal history of transient ischemic attack (TIA), and cerebral infarction without residual deficits; Z88.1 Allergy status to other antibiotic agents; Z88.8 Allergy status to other drugs, medicaments and biological substances; Z79.4 Long term (current) use of insulin; Z79.899 Other long term (current) drug therapy; X58.XXXA Exposure to other specified factors, initial encounter
CPT/HCPCS: 99283; A9270